=== PATIENT | male | born 1950 | race Caucasian/White ===

== ENCOUNTER 2016-05-09 17:20 | Inpatient (IN) | payer MEDICARE, OTHER ==
--- NOTE | 2016-05-09 17:46 | ER Document Report ---
ED Medical Screen (RME) - General Stated Complaint: SHORTNESS OF BREATH Mode of Arrival: Ambulatory Information source: Patient Notes: 66 y/o M presents to ED via EMS c/o sob over the last 2 days. Worse with exertion. Reports hx of chf. Denies fever or chest pain. I have greeted and performed a rapid initial assessment of this patient. A comprehensive ED assessment and evaluation of the patient, analysis of test results and completion of the medical decision making process will be conducted by additional ED providers. TRAVEL OUTSIDE OF THE [place] IN LAST 30 DAYS: No - Related Data Allergies/Adverse Reactions: cephalexin monohydrate [From [employer]] Allergy (Unknown, Verified 05/09/16 17:40) Hives Past Medical History - Social History Family history: Reviewed & Not Pertinent - Past Medical History Cardiac Medical History: Reports: Hx Congestive Heart Failure, Hx Heart Attack - 1995, Hx Hypercholesterolemia, Hx Peripheral Vascular Disease Denies: Hx Hypertension Pulmonary Medical History: Reports: Hx Sleep Apnea Denies: Hx Asthma Neurological Medical History: Denies: Hx Cerebrovascular Accident, Hx Seizures Endocrine Medical History: Reports: Hx Diabetes Mellitus Type 2 GI Medical History: Reports: Hx Gastroesophageal Reflux Disease. Denies: Hx Hepatitis, Hx Hiatal Hernia, Hx Ulcer Musculoskeltal Medical History: Reports Hx Arthritis Psychiatric Medical History: Reports: Hx Depression Infectious Medical History: Denies: Hx Hepatitis Past Surgical History: Reports: Hx Appendectomy, Hx Cardiac Surgery - Aortic Valve replacement, Hx Orthopedic Surgery - Right BKA, Hx Valve Replacement, Other - Lens Replacement Surgery. Denies: Hx Open Heart Surgery, Hx Pacemaker - Immunizations Hx Diphtheria, Pertussis, Tetanus Vaccination: Yes Physical Exam - General General appearance: Appears well, Alert In distress: None - Respiratory Respiratory status: No respiratory distress - Cardiovascular Pulses: Normal: Radial Normal capillary refill: Yes
[2016-05-09 18:37] LABS: ABSOLUTE BASOPHILS # (AUTO) 0.1 10^3/uL (0.0-0.2); ABSOLUTE EOSINOPHILS # (AUTO) 0.2 10^3/uL (0.0-0.6); ABSOLUTE LYMPHOCYTES (AUTO) 1.3 10^3/uL (0.5-4.7); ABSOLUTE NEUT (AUTO) 11.5 10^3/uL (1.7-8.2); BASOPHILS % (AUTO) 0.5 % (0-2); EOSINOPHILS % (AUTO) 1.4 % (0-6); HEMATOCRIT 31.8 % (37.9-51.0); HEMOGLOBIN 10.1 g/dL (13.5-17.0); HGB HCT DIFFERENCE -1.5; LYMPHOCYTES % (AUTO) 9.3 % (13-45); MEAN CORPUSCULAR HEMOGLOBIN 24.2 pg (27.0-33.4); MEAN CORPUSCULAR HGB CONC 31.7 g/dL (32.0-36.0); MEAN CORPUSCULAR VOLUME 76 fl (80-97); MONOCYTES % (AUTO) 7.1 % (3-13); RED BLOOD COUNT 4.17 10^6/uL (4.35-5.55); RED CELL DISTRIBUTION WIDTH 19.9 % (11.5-14.0); SEGMENTED NEUTROPHILS % (AUTO) 81.7 % (42-78); WHITE BLOOD COUNT 14.1 10^3/uL (4.0-10.5)
[2016-05-09 18:44] LABS: PROTHROMBIN TIME 35.3 SEC (11.4-15.4)
[2016-05-09 18:45] LABS: PARTIAL THROMBOPLASTIN TIME 41.3 SEC (23.5-35.8)
[2016-05-09 18:51] LABS: ALANINE AMINOTRANSFERASE 18 U/L (21-72); ALBUMIN 4.3 g/dL (3.5-5.0); ALKALINE PHOSPHATASE 65 U/L (38-126); ANION GAP 13 (5-19); ASPARTATE AMINO TRANSFERASE 18 U/L (17-59); BILIRUBIN,TOTAL 0.8 mg/dL (0.2-1.3); BLOOD UREA NITROGEN 29 mg/dL (7-20); CALCIUM 9.6 mg/dL (8.4-10.2); CARBON DIOXIDE 25 mmol/L (22-30); CHLORIDE 101 mmol/L (98-107); CREATINE KINASE 54 U/L (55-170); CREATININE RESULT 0.91 mg/dL (0.52-1.25); GLUCOSE 155 mg/dL (75-110); POTASSIUM 4.6 mmol/L (3.6-5.0); SODIUM 139.1 mmol/L (137-145); TOTAL PROTEIN 7.5 g/dL (6.3-8.2)
[2016-05-09 19:02] LABS: CREATINE KINASE MB 1.25 ng/mL (<4.55)
[2016-05-09 19:04] LABS: TROPONIN I < 0.012 ng/mL
[2016-05-09 20:56] LABS: APPEARANCE,URINE CLEAR; BILIRUBIN,URINE NEGATIVE (NEGATIVE); GLUCOSE, URINE NEGATIVE (NEGATIVE); KETONES,URINE NEGATIVE (NEGATIVE); LEUKOCYTE ESTERASE,URINE NEGATIVE (NEGATIVE); NITRITE,URINE NEGATIVE (NEGATIVE); PROTEIN,URINE NEGATIVE (NEGATIVE); URINE SPECIFIC GRAVITY 1.013; UROBILINOGEN,URINE NEGATIVE mg/dL (<2.0)
--- NOTE | 2016-05-09 22:11 | ER Document Report ---
ED General - General Chief Complaint: Shortness Of Breath Stated Complaint: SHORTNESS OF BREATH Mode of Arrival: Ambulatory Notes: Patient is a 66-year-old male that comes emergency department for chief complaint of worsening shortness of breath for the past 2 days, patient states that he was supposed to see his continuity tester down in [place] today but states he became too short of breath and came in to be evaluated instead. He denies any chest pain, cough, fever. He states he has noticed more fluid on his left ankle and over his abdomen, patient has a conjugate a medical history including CHF, peripheral vascular disease with right BKA, type II diabetes, aortic valve replacement, PA and cardiac stents. Patient is on Coumadin. Patient takes 80 mg of Lasix twice daily and states he has been compliant with this. Patient is also on 4 L nasal cannula at night. TRAVEL OUTSIDE OF THE [place] IN LAST 30 DAYS: No - Related Data Allergies/Adverse Reactions: cephalexin monohydrate [From [employer]] Allergy (Unknown, Verified 05/09/16 17:40) Hives Past Medical History - General Information source: Patient - Social History Smoking Status: Never Smoker Chew tobacco use (# tins/day): No Frequency of alcohol use: None Drug Abuse: None Lives with: Family Family History: Reviewed & Not Pertinent Patient has suicidal ideation: No Patient has homicidal ideation: No - Past Medical History Cardiac Medical History: Reports: Hx Congestive Heart Failure, Hx Heart Attack - 1995, Hx Hypercholesterolemia, Hx Peripheral Vascular Disease Denies: Hx Hypertension Pulmonary Medical History: Reports: Hx Sleep Apnea Denies: Hx Asthma Neurological Medical History: Denies: Hx Cerebrovascular Accident, Hx Seizures Endocrine Medical History: Reports: Hx Diabetes Mellitus Type 2 Renal/ Medical History: Denies: Hx Peritoneal Dialysis GI Medical History: Reports: Hx Gastroesophageal Reflux Disease. Denies: Hx Hepatitis, Hx Hiatal Hernia, Hx Ulcer Musculoskeltal Medical History: Reports Hx Arthritis Psychiatric Medical History: Reports: Hx Depression Infectious Medical History: Denies: Hx Hepatitis Past Surgical History: Reports: Hx Appendectomy, Hx Cardiac Surgery - Aortic Valve replacement, Hx Orthopedic Surgery - Right BKA, Hx Valve Replacement, Other - Lens Replacement Surgery. Denies: Hx Open Heart Surgery, Hx Pacemaker - Immunizations Hx Diphtheria, Pertussis, Tetanus Vaccination: Yes Hx Pneumococcal Vaccination: 08/28/12 Review of Systems - Review of Systems Constitutional: No symptoms reported EENT: No symptoms reported Cardiovascular: See HPI Respiratory: See HPI Gastrointestinal: No symptoms reported Genitourinary: No symptoms reported Male Genitourinary: No symptoms reported Musculoskeletal: No symptoms reported Skin: No symptoms reported Hematologic/Lymphatic: No symptoms reported Neurological/Psychological: No symptoms reported Physical Exam - Vital signs Vitals: Temp Resp BP 97.7 F 24 H 114/65 05/09/16 17:46 05/09/16 17:46 05/09/16 17:46 Interpretation: Normal - General General appearance: Appears well, Alert - HEENT Head: Normocephalic, Atraumatic Eyes: Normal Pupils: PERRL - Respiratory Respiratory status: No respiratory distress. No: Labored Chest status: Nontender Breath sounds: Other - A few scattered rales, decreased breath sounds bilaterally, unremarkable examination otherwise Chest palpation: Normal - Cardiovascular Rhythm: Regular. No: Tachycardia Heart sounds: Normal auscultation, S1 appreciated, S2 appreciated Murmur: Yes - 1/6 heard throughout - Abdominal Inspection: Normal Distension: No distension Bowel sounds: Normal Tenderness: Nontender Organomegaly: No organomegaly - Back Back: Normal, Nontender - Extremities General upper extremity: Normal inspection, Nontender, Normal color, Normal ROM , Normal temperature General lower extremity: Other - Right BKA, left ankle with edema noticed at the ankle but also extending up towards the knee, normal pulse, no abnormalities noted otherwise - Neurological Neuro grossly intact: Yes Cognition: Normal Orientation: AAOx4 [place] Coma Scale Eye Opening: Spontaneous [place] Coma Scale Verbal: Oriented [place] Coma Scale Motor: Obeys Commands Sushila Coma Scale Total: 15 Speech: Normal Cranial nerves: Normal Cerebellar coordination: Normal Motor strength normal: LUE, RUE, LLE, RLE Additional motor exam normals: Equal assessment specialist Sensory: Normal - Psychological Associated symptoms: Normal affect, Normal mood - Skin Skin Temperature: Warm Skin Moisture: Dry Skin Color: Normal Course - Re-evaluation Re-evalutation: CBC shows mild leukocytosis, however this is downtrending from prior, also shows microcytic anemia, this is also not new compared to prior. A&P is somewhat elevated, not as elevated as it has been previously, cardiac enzymes negative, EKG shows paced rhythm. Chest x-ray shows small pleural effusions with pulmonary vascular congestion consistent with patient's history and symptoms of likely CHF exacerbation. Patient treated with IV Lasix, patient unfortunately has started taking very large amount of Lasix at home which normally keep him from developing the symptoms. Discussed with Dr. Tate. Discussed with Dr. Esparza, patient will be admitted to the hospital for CHF exacerbation. - Vital Signs Vital signs: Temp Pulse Resp BP Pulse Ox 98.5 F 27 H 111/77 98 05/10/16 01:15 05/10/16 04:01 05/10/16 04:01 05/10/16 04:00 - Laboratory Result Diagrams: 05/09/16 18:07 05/09/16 18:07 Laboratory results interpreted by me: 05/09/16 05/09/16 05/09/16 18:07 18:07 18:07 WBC 14.1 H RBC 4.17 L Hgb 10.1 L Hct 31.8 L MCV 76 L MCH 24.2 L MCHC 31.7 L RDW 19.9 H Seg Neutrophils % 81.7 H Lymphocytes % 9.3 L Absolute Neutrophils 11.5 H PT APTT BUN 29 H Glucose 155 H ALT 18 L Creatine Kinase 54 L NT-Pro-B Natriuret Pep 1620 H TSH Urine Blood 05/09/16 05/09/16 05/10/16 18:07 20:25 00:37 WBC RBC Hgb Hct MCV MCH MCHC RDW Seg Neutrophils % Lymphocytes % Absolute Neutrophils PT 35.3 H APTT 41.3 H BUN Glucose ALT Creatine Kinase NT-Pro-B Natriuret Pep TSH 5.06 H Urine Blood LARGE H Discharge - Discharge Clinical Impression: Shortness of breath, Pulmonary vascular congestion CHF (congestive heart failure) Qualifiers: Congestive heart failure type: unspecified congestive heart failure type Congestive heart failure chronicity: unspecified congestive heart failure chronicity Qualified Code(s): I50.9 - Heart failure, unspecified Disposition: ADMITTED INPATIENT Admitting Provider: Hospitalist Unit Admitted: [facility]
[2016-05-09] MEDS ORDERED: FUROSEMIDE INJ/PF 40 MG/4 ML SDV IV ONE (22:16)
--- NOTE | 2016-05-09 23:23 | ER Document Report ---
Doctor's Note Notes: 05/09/16 23:21 Patient independently seen and examined by myself. Patient reports 2 day history of worsening shortness of breath and what he said past with exacerbations congestive heart failure which is usually responded IV Lasix. He reports chronically uses oxygen 4 L nasal cannula at night. He denies chest pain. He reports no recent weight gain and doesn't think he's had any swelling in his for left leg. Worse than his baseline. Patient denies diaphoresis, fever, chills, nausea, vomiting. My physical exam chest a few crackles in bases bilateral breath sounds equal good aeration excess muscle usage heart regular rate and rhythm abdomen soft nontender nondistended no guarding rebound rigidity Lower extremities warm with 3+ edema from mid thigh down EKG and chest x-ray reviewed along with laboratory work
[2016-05-10] MEDS ORDERED: DEXTROSE 40% GEL 15 GM TUBE PO PRN ×2 (02:42)
[2016-05-10] MEDS ORDERED: DEXTROSE 50%-WATER 25 GM/50 ML DISP.SYRIN IV PRN ×2 (02:42)
[2016-05-10] MEDS ORDERED: GLUCAGON,HUMAN RECOMB 1 MG INJ IM PRN (02:42)
--- NOTE | 2016-05-10 03:16 | PDOC H&P ---
History of Present Illness Admission Date/PCP: 05/09/16 23:11 [facility] Cardiology: Dr. Kaye, Dr. Wolf Patient complains of: Difficulty breathing History of Present Illness: AMANDA CALDERON is a 66 year old morbidly obese male with multiple chronic comorbidities, including obstructive sleep apnea, setting of 14, with 4 L oxygen, severe chronic systolic congestive heart failure, less than 20% ejection fraction on March 2015 echocardiogram at our facility, status post AICD implant, type II diabetes mellitus with peripheral vascular disease complications, status post right below-knee amputation, status post mechanical aortic valve replacement, [place] Samm valve, on chronic Coumadin for same, chronic anemia, and status post coronary arterial stent implant, March 2015, who presents to the emergency room for evaluation of a 2 day history of slowly progressive difficulty breathing with associated shortness of breath, in particular with much of any exertion. on prn 4 L oxygen per nasal cannula, which he has been using more frequently the last 48 hours. Other than his sleep apnea, he denies any underlying chronic lung pathology such as asthma or COPD. Was actually scheduled to see his fire sprinkler installer in [place] on the , but was too short of breath and came to the emergency room. Dry cough. Mild occasional chest "heaviness," when the shortness of breath is at its worst, but no chest pain per se. No current chest symptoms. No abdominal pain, fever chills, nausea vomiting, diarrhea or dysuria. States he is compliant with his medications and has not run out of any recently. Normally takes 80 mg of Lasix twice daily. His only recent medication change is [id number] medications for sinus congestion, including Zyrtec, Chloraseptic spray, and Coricidin HBP. Has been treated with parenteral Lasix in the emergency room, and states he is breathing more comfortably now. Patient has been discussed with emergency room nurse practitioner who evaluated the patient. . Laboratory results are listed in [facility] and are reviewed. X-ray summary results are listed below, with full report(s) reviewed. . EKG reviewed. And compared to tracing from September 02, 2014. Social history/personal habits: . 3 children. On disability due to multiple health problems. No use of alcohol tobacco or illicit drugs. Allergies/adverse reactions are listed in [facility] and are reviewed. Home medications are reviewed by discussion with patient and are to be reconciled by nursing staff in [facility]. Home medications initially autopopulated into [employer] may not accurately reflect patient's true medications, dosages, and/or frequencies. Unfortunately, patient uncertain of medications/dosages/frequencies. Order has been entered for staff to contact family, outpatient physician, and/or pharmacy to more accurately determine medications, dosages, and frequencies and to contact physician when that has been accomplished. REVIEW OF SYSTEMS: Constitutional: No fever or chills. Eyes: Wears glasses. ENT: No swallowing problems or complaints. Partial hearing loss. Pulmonary: See history and present illness. Cardiovascular: See history and present illness. Gastrointestinal: No current complaints, including nausea or vomiting. Skin: Recurrent small skin ulcers on his left posterior calf, with 1 present now. Hematologic: Easy bruising. Neurologic: Minimal sensation in his left foot, chronic finding due to diabetic neuropathy. Musculoskeletal: Joint pain from arthritis. Psychiatric: Mild depression; denies suicidal or homicidal ideation. Endocrine: No current complaints, including polyuria. Genitourinary: No current complaints, including dysuria. PHYSICAL EXAMINATION: 6 feet 4 inches tall. 163.3 kg. BMI 43.8 kg/m. Temperature 98.5. Blood pressure 112/62. Pulse 97 and regular. Respirations are 13 and unlabored. 99 % saturation on 4 L oxygen per nasal cannula. Morbidly obese chronically ill-appearing male who nevertheless appears approximately his stated age. Pleasant awake alert and cooperative. No obvious distress other than perhaps mildly anxious, along with perhaps slightly fatigued. is present at his side; patient approves. Skin is warm and dry. No grossly obvious evidence of rash in areas of skin examined. No subcutaneous nodules palpated. Evidence of chronic venous staining, left lower extremity in the gaitor region. Small amount of clear serous fluid weeping from his left posterior calf, with a small chronic appearing ulcer in the same region, without evidence of secondary infection. Nontender to palpation. ENT: Mildly hard of hearing to normal conversation. Tongue midline on protrusion pink and slightly tacky. Eyes: No scleral icterus. Pupils equal and reactive to light at 4 mm. [place] conjunctivae. Neck is supple and nontender to gentle active range of motion and palpation. Midline trachea. No palpable thyroid nodule mass enlargement or tenderness. Lymphatic: No palpable cervical or clavicular nodes. Neck and lymphatic exams limited by patient body habitus. Psychiatric: Reasonable insight into acute and chronic medical issues. Oriented to time location and why here. Lungs: Auscultation reveals clear and equal breath sounds bilaterally. No use of accessory respiratory muscles. Cardiovascular: Heart regular rate and rhythm, without gallop murmur or rub. No carotid or abdominal aortic bruits. mild left ankle and pedal edema, slightly pitting. Faintly palpable dorsalis pedis pulses. Abdomen: soft, quite obese, nontender with positive bowel sounds. Unable to adequately evaluate abdomen for masses or organomegaly due to body habitus. Extremities: Left foot warm and dry. No calf tenderness to compression. No grossly obvious visual evidence of calf swelling. Gentle active range of motion of left lower extremity fails to reveal any obvious evidence of injury or instability to knee hip or ankle. Status post right below-knee amputation. Neurologic: Moves upper extremities grossly normally. Left patellar reflex absent. Absent Babinski. Light touch decreased at foot, a chronic finding, according to patient, without recent change. Dorsiflexion and plantarflexion of foot 5 over 5. Past Medical History Cardiac Medical History: Reports: Congestive Heart Failure - Ejection fraction less than 20%, March 2015 echo at our facility., Coronary Artery Disease, Myocardial Infarction - 1995, Hyperlipidema, Hypertension, Peripheral Vascular Disease Denies: DVT, Pulmonary Embolism Pulmonary Medical History: Reports: Sleep Apnea Denies: Asthma, Chronic Obstructive Pulmonary Disease (COPD) EENT Medical History: Reports: Eyes - Glasses, Ears - Partial hearing loss Denies: Throat Neurological Medical History: Denies: Hemorrhagic CVA, Ischemic CVA, Seizures Endocrine Medical History: Reports: Diabetes Mellitus Type 2 Denies: Diabetes Mellitus Type 1, Hyperthyroidism, Hypothyroidism Renal/ Medical History: Reports: Other - Occasional urinary tract infection Malignancy Medical History: Reports: Skin Cancer - History of basal cell carcinomas. GI Medical History: Reports: Gastroesophageal Reflux Disease Denies: Cirrhosis, Hepatitis, Hiatal Hernia, Peptic Ulcer Disease Musculoskeltal Medical History: Reports: Arthritis Skin Medical History: Reports: Other - Recurrent small ulcers, left posterior calf. Denies: Eczema, Psoriasis Psychiatric Medical History: Reports: Depression Denies: Alcohol Dependency, General Anxiety Disorder, Substance Abuse, Tobacco Dependency Hematology: Denies: Anemia, Sickle Cell Disease Infectious Medical History: Reports: Clostridium Difficile Denies: Hepatitis B, Hepatitis C, Methicillin-Resistant Staph Aureus Past Surgical History Past Surgical History: Reports: Appendectomy, Orthopedic Surgery - Right BKA, Valve Replacement - Aortic, St. Samm replacement., Other - Cataract surgery, w/ lens implants Denies: Pacemaker Social History Information Source: Patient, Emergency Med Personnel, [facility] Records Lives with: Family Smoking Status: Never Smoker Frequency of Alcohol Use: None Hx Recreational Drug Use: No Drugs: None Hx Prescription Drug Abuse: No - Advance Directive Resuscitation Status: Full Code Surrogate healthcare decision maker:: Family History Family History: Reviewed & Not Pertinent Parental Family History Reviewed: Yes Children Family History Reviewed: Yes Sibling(s) Family History Reviewed.: Yes Medication/Allergy Home Medications: Acetaminophen [Tylenol] 1,300 mg PO Q8HP PRN 05/10/16 Aspirin [Adult Low Dose Aspirin EC] 81 mg PO DAILY 05/10/16 Atorvastatin Calcium [Lipitor 80 mg Tablet] 80 mg PO DAILY 05/10/16 Carvedilol [Coreg 6.25 mg Tablet] 6.25 mg PO BIDBS 05/10/16 Clopidogrel Bisulfate [Plavix 75 mg Tablet] 75 mg PO DAILY 05/10/16 Fluticasone Propionate [Flonase Nasal Quinton 50 Mcg/[place]inton 16 gm] 1 spray NASL DAILY 05/10/16 Insulin Lispro [Humalog Kwikpen U-100] 0 units SQ .PERSLIDINGSCALE 05/10/16 Insulin Lispro [Humalog Kwikpen U-100] 24 units SQ TID 05/10/16 Insulin Regular, Human [Humulin R U-500 Kwikpen] 42 units SQ DAILY 05/10/16 Isosorbide Mononitrate [Imdur 60 mg Tablet.er] 60 mg PO QAM 05/10/16 Lidocaine [Lidoderm 5% (700 mg) Transdermal Patch] 2 patch TOP DAILY 05/10/16 Metformin HCl [Glucophage] 1,000 mg PO BIDBS 05/10/16 Nitroglycerin [Nitromist] 1 spray SL Q5MP PRN 05/10/16 Omeprazole 20 mg PO QPM 05/10/16 Oxybutynin Chloride [Ditropan Xl] 5 mg PO Q12 05/10/16 Paroxetine HCl [Paxil 20 mg Tablet] 20 mg PO DAILY 05/10/16 Polyethylene Glycol 3350 [Miralax Powder 17 gm/Packet] 17 gm PO DAILY 05/10/16 Pregabalin [Lyrica 100 mg Capsule] 100 mg PO TID 05/10/16 Ropinirole HCl 1 mg PO QHS 05/10/16 Silver Sulfadiazine [Silvadene 1% Cream 50 gm] 1 applic TOP Q12 05/10/16 Spironolactone [Aldactone 100 mg Tablet] 100 mg PO DAILY 05/10/16 Tobramycin [Tobrex] 1 drop OU Q4 05/10/16 Warfarin Sodium [Coumadin 5 mg Tablet] 10 mg PO SUMOTUTHFRSA@1000 05/10/16 Warfarin Sodium [Coumadin] 15 mg PO WE@1000 05/10/16 Benzocaine/Menthol [Chloraseptic Sore Throat Lozenge] 1 each BUCCAL Q4HP PRN lozenge 05/13/16 Cetirizine HCl [Zyrtec 10 mg Tablet] 10 mg PO DAILY tablet 05/13/16 Furosemide [Lasix] 80 mg PO TID #15 tablet 05/13/16 Magnesium Oxide [Mag-Ox 400 mg Tablet] 800 mg PO BID tablet 05/13/16 Allergies/Adverse Reactions: cephalexin monohydrate [From Keflex] Allergy (Unknown, Verified 05/09/16 17:40) Hives Physical Exam Vital Signs: Temp Pulse Resp BP Pulse Ox 98.5 F 19 111/69 97 05/10/16 01:15 05/10/16 02:01 05/10/16 02:01 05/10/16 02:01 Results Laboratory Results: 05/10/16 05/10/16 00:37 00:37 Magnesium 1.6 TSH 5.06 H 05/10/16 00:37 Troponin I < 0.012 Impressions: Chest X-Ray 05/09/16 17:40 IMPRESSION: Increased interstitial markings in the bases with small bilateral pleural effusions.. VASCULAR CONGESTION. Assessment & Plan - Diagnosis (1) Acute on chronic systolic (congestive) heart failure Is this a current diagnosis for this admission?: YesPlan: Parenteral Lasix at present time. Suspect daytime hospitalist team will contact patient's fire sprinkler installer in [place] [facility]. Resume home medications as appropriate once these have been determined and reviewed. I have strongly encouraged patient not to get out of bed without notifying staff , to avoid a fall with injury. Knee high SCD for DVT prophylaxis; with patient therapeutic on Coumadin, no need for Lovenox or heparin.] Impression and plans were discussed with patient, and , both of whom concur. Time spent in evaluation and management of patient: 62 minutes. (2) Anemia Qualifiers: Anemia type: unspecified type Qualified Code(s): D64.9 - Anemia, unspecified Is this a current diagnosis for this admission?: YesPlan: Follow-up CBC with differential. No need for transfusion at present time. (3) Diabetes mellitus type 2 in obese Is this a current diagnosis for this admission?: YesPlan: Diabetic cardiac diet. Accu-Cheks with appropriate sliding scale coverage.Resume home medications as appropriate once these have been determined and reviewed. 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 (7) SANDRA (obstructive sleep apnea) Is this a current diagnosis for this admission?: YesPlan: CPAP. (8) Ulcer of left lower leg Qualifiers: Non-pressure ulcer stage: unspecified non-pressure ulcer stage Qualified Code(s): L97.929 - Non-pressure chronic ulcer of unspecified part of left lower leg with unspecified severity Is this a current diagnosis for this admission?: YesPlan: Local wound care orders have been entered in medical record. - Inpatient Certification Based on my medical assessment, after consideration of the patient's comorbidities, presenting symptoms, or acuity I expect that the services needed warrant INPATIENT care.: Yes I certify that my determination is in accordance with my understanding of Medicare's requirements for reasonable and necessary INPATIENT services [42 CFR 412.3e].: Yes Medical Necessity: Significant Comorbidiites Make Outpatient Treatment Too Risky , Need Close Monitoring Due to Risk of Patient Decompensation, Need For Continuous Telemetry Monitoring, Risk of Complication if Not Cared For in Hospital, Risk of Diagnosis Which Will Require Inpatient Eval/Care/Monitoring Post Hospital Care: D/C or Transfer Summary
[2016-05-10 07:01] LABS: ABSOLUTE BASOPHILS # (AUTO) 0.1 10^3/uL (0.0-0.2); ABSOLUTE EOSINOPHILS # (AUTO) 0.3 10^3/uL (0.0-0.6); ABSOLUTE LYMPHOCYTES (AUTO) 1.4 10^3/uL (0.5-4.7); ABSOLUTE MONOCYTES (AUTO) 1.3 10^3/uL (0.1-1.4); ABSOLUTE NEUT (AUTO) 13.4 10^3/uL (1.7-8.2); BASOPHILS % (AUTO) 0.5 % (0-2); EOSINOPHILS % (AUTO) 1.5 % (0-6); HEMATOCRIT 34.8 % (37.9-51.0); HEMOGLOBIN 10.8 g/dL (13.5-17.0); HGB HCT DIFFERENCE -2.4; LYMPHOCYTES % (AUTO) 8.6 % (13-45); MEAN CORPUSCULAR HEMOGLOBIN 23.8 pg (27.0-33.4); MEAN CORPUSCULAR VOLUME 77 fl (80-97); MONOCYTES % (AUTO) 7.7 % (3-13); RED BLOOD COUNT 4.53 10^6/uL (4.35-5.55); RED CELL DISTRIBUTION WIDTH 19.8 % (11.5-14.0); SEGMENTED NEUTROPHILS % (AUTO) 81.7 % (42-78); WHITE BLOOD COUNT 16.4 10^3/uL (4.0-10.5)
[2016-05-10 07:22] LABS: PROTHROMBIN TIME 32.2 SEC (11.4-15.4)
[2016-05-10] MEDS: FUROSEMIDE INJ/PF 100 MG/10 ML SDV IV SCH ×2 (09:15→22:06)
[2016-05-10] MEDS: VENLAFAXINE HCL 75 MG CAP.SR.24H PO SCH (09:16)
[2016-05-10] MEDS: ASPIRIN 81 MG TABLET, ENT COATED PO SCH (09:16)
[2016-05-10] MEDS: OXYBUTYNIN CHLORIDE 5 MG TABLET PO SCH (09:16)
[2016-05-10] MEDS: ISOSORBIDE MONONITRATE 60 MG TAB.ER.24H PO SCH (09:17)
[2016-05-10] MEDS: CETIRIZINE 10 MG TABLET PO SCH (09:17)
[2016-05-10] MEDS: MAGNESIUM OXIDE 400 MG TABLET PO SCH ×2 (09:17→17:57)
[2016-05-10] MEDS: DOCUSATE SODIUM 100 MG CAPSULE PO SCH ×2 (09:18→17:57)
[2016-05-10] MEDS: CARVEDILOL 6.25 MG TABLET PO SCH ×2 (09:18→22:06)
[2016-05-10] MEDS ORDERED: ISOSORBIDE MONONITRATE 30 MG TAB.ER.24H PO SCH (10:00)
--- NOTE | 2016-05-10 16:48 | PDOC PROGRESS REPORT ---
Subjective Progress Note for:: 05/10/16 Subjective:: Reason for visit: Follow-up heart failure Hospital course: Per H&P "AMANDA CALDERON is a 66 year old morbidly obese male with multiple chronic comorbidities, including obstructive sleep apnea, setting of 14, with 4 L oxygen, severe chronic systolic congestive heart failure, less than 20% ejection fraction on March 2015 echocardiogram at our facility, status post AICD implant, type II diabetes mellitus with peripheral vascular disease complications, status post right below-knee amputation, status post mechanical aortic valve replacement, St. Samm valve, on chronic Coumadin for same, chronic anemia, and status post coronary arterial stent implant, March 2015, who presents to the emergency room for evaluation of a 2 day history of slowly progressive difficulty breathing with associated shortness of breath, in particular with much of any exertion. Is on when necessary 4 L oxygen per nasal cannula, which he has been using more frequently the last 48 hours. Other than his sleep apnea, he denies any underlying chronic lung pathology such as asthma or COPD. Was actually scheduled to see his special loan officer in [place] on the , but was too short of breath and came to the emergency room. Dry cough. Mild occasional chest "heaviness," when the shortness of breath is at its worst, but no chest pain per se. No current chest symptoms. No abdominal pain, fever chills, nausea vomiting, diarrhea or dysuria. States he is compliant with his medications and has not run out of any recently. Normally takes 80 mg of Lasix twice daily. His only recent medication change is [id number] medications for sinus congestion, including Zyrtec, Chloraseptic spray, and Coricidin HBP. Has been treated with parenteral Lasix in the emergency room, and states he is breathing more comfortably now." Patient was admitted to the hospital and continued on high-dose parenteral Lasix and does report a good diuresis so far. He also reports displeasure with being at this facility because his primary cardiologists are in [place]. He would prefer that we can coordinate his care with [place] at the very least and the best case scenario would be a transferred to [place] if we could sore range. I explained to him that there are no beds available at [facility] but I would happily contact his special loan officer and attempts to coordinate his care here. I reached out to Dr. Kaye but have yet to hear back from him. In the meantime the patient is stable and it would be a lateral transfer for treatment of his congestive heart failure. Subjective: He denies chest pain, palpitations, nausea, vomiting, diarrhea, fevers or chills. He reports persistent dyspnea with minimal exertion. ROS: per HPI plus a total of 10 systems reviewed, pertinent positives and negatives noted above, remaining systems negative. Physical Exam Vital Signs: Temp Pulse Resp BP Pulse Ox 97.5 F 89 19 94/36 L 100 05/10/16 15:36 05/10/16 15:36 05/10/16 15:36 05/10/16 15:36 05/10/16 15:36 Intake & Output 05/09/16 05/10/16 05/11/16 06:59 06:59 06:59 Intake Total 360 Output Total 2700 Balance -2340 Weight 163 kg PHYSICAL EXAM GENERAL: NAD; well developed, well nourished; morbidly obese; alert and oriented to person, place, time, situation HEENT: normocephalic, atraumatic; EOMI, no conjunctival injection, no scleral icterus; oral mucosa moist, neck supple, no LAD, normal ROM RESPIRATORY: no accessory muscle use, no increased WOB, good air entry bilaterally; no wheezes, bibasilar rales but no rhonchi CARDIO: I don't appreciate any JVD; irregularly irregular; soft decrescendo systolic murmur at the apex; no tachycardia VASCULAR: no carotid bruit; no abdominal bruit; no pallor; 2+ radial, DP pulse ; normal capillary refill GI: soft; massive pannus; normal bowel sounds; no rebound, rigidity, guarding; nontender NEURO: no dysarthria; no nystagmus; tongue protrudes midline; normal finger to nose MSK: 4/5 strength; normal ROM hips; ambulatory without assistance; no tenderness; a right BKA EXTREMITIES: no calf tender; no palpable cords in calf; no clubbing, cyanosis , 2+ pedal edema on the left and at the stump PSYCH: normal affect, normal mood SKIN: warm; moist; no petechiae; no telengectasias; no jaundice; no rash Results Laboratory Results: 05/10/16 06:53 02/24/17 06:53 WBC 16.4 H RBC 4.53 Hgb 10.8 L Hct 34.8 L MCV 77 L MCH 23.8 L MCHC 31.0 L RDW 19.8 H Plt Count 295 Seg Neutrophils % 81.7 H Lymphocytes % 8.6 L Monocytes % 7.7 Eosinophils % 1.5 Basophils % 0.5 Absolute Neutrophils 13.4 H Absolute Lymphocytes 1.4 Absolute Monocytes 1.3 Absolute Eosinophils 0.3 Absolute Basophils 0.1 05/10/16 06:53 Troponin I 0.015 Labs reviewed, troponin trend is flat and within the normal range, leukocytosis slightly up, renal function within normal limits EKG Comments: V paced rhythm Impressions: Chest X-Ray 05/09/16 17:40 IMPRESSION: Increased interstitial markings in the bases with small bilateral pleural effusions.. VASCULAR CONGESTION. Status: Image reviewed by me - Bilateral pulmonary edema, wide mediastinum with engorgement of the pulmonary vasculature by my read Assessment & Plan - Diagnosis (1) Acute on chronic systolic (congestive) heart failure Is this a current diagnosis for this admission?: YesPlan: Continue high dose Lasix therapy in an attempt to diurese approximately 1 L per day. Monitor volume status. Awaiting callback from his primary special loan officer to see if he can offer any insight how to proceed or if he is willing to accept the patient in transfer. (2) Coronary artery disease Qualifiers: Coronary Disease-Associated Artery/Lesion type: unspecified vessel or lesion type Associated angina: angina presence unspecified Is this a current diagnosis for this admission?: YesPlan: He is not having chest pain is EKG is nondiagnostic for acute ischemia and his troponins have been flat within the normal range. (3) Hypomagnesemia Is this a current diagnosis for this admission?: YesPlan: Borderline low at present 1.6 we'll check again in the morning and replace as needed; may worsen with diuresis (4) Anemia Qualifiers: Anemia type: unspecified type Qualified Code(s): D64.9 - Anemia, unspecified Is this a current diagnosis for this admission?: YesPlan: Continue to monitor his H&H; no evidence for acute blood loss. (5) DM w/o complication type II Is this a current diagnosis for this admission?: YesPlan: Cover with sliding scale. (6) History of aortic valve replacement with metallic valve Is this a current diagnosis for this admission?: YesPlan: Continue anticoagulation following his INR on a daily basis. (7) retirement current use of anticoagulant therapy Is this a current diagnosis for this admission?: YesPlan: Continue anticoagulation. (8) Morbid obesity Is this a current diagnosis for this admission?: YesPlan: Certainly adversely affects his respiratory status. (9) SANDRA (obstructive sleep apnea) Is this a current diagnosis for this admission?: YesPlan: Continue home CPAP with supplemental O2 at night per his usual routine - Time Time Spent with patient: 35 or more minutes Medications reviewed and adjusted accordingly: Yes Anticipated discharge: Home Within: within 72 hours - Plan Summary Plan Summary: Dr. Kaye's office number is [phone]
--- NOTE | 2016-05-10 16:55 | EKG REPORT ---
SEVERITY:- ABNORMAL ECG - ATRIAL-SENSED VENTRICULAR-PACED RHYTHM : Confirmed by: Elizabeth Bush MD 10-May-2016 16:54:15
[2016-05-10 18:24] LABS: PROTHROMBIN TIME 32.4 SEC (11.4-15.4)
[2016-05-10] MEDS ORDERED: (PENDING PHARMACY ID) (Warfarin Sodium [Coumadin] 10 MG) PO SCH (22:00)
[2016-05-10] MEDS: ATORVASTATIN CALCIUM 80 MG TABLET PO SCH (22:06)
[2016-05-11 05:37] LABS: ABSOLUTE BASOPHILS # (AUTO) 0.1 10^3/uL (0.0-0.2); ABSOLUTE EOSINOPHILS # (AUTO) 0.3 10^3/uL (0.0-0.6); ABSOLUTE LYMPHOCYTES (AUTO) 1.5 10^3/uL (0.5-4.7); ABSOLUTE MONOCYTES (AUTO) 1.3 10^3/uL (0.1-1.4); ABSOLUTE NEUT (AUTO) 12.1 10^3/uL (1.7-8.2); EOSINOPHILS % (AUTO) 1.9 % (0-6); HEMATOCRIT 32.9 % (37.9-51.0); HEMOGLOBIN 10.3 g/dL (13.5-17.0); LYMPHOCYTES % (AUTO) 9.5 % (13-45); MEAN CORPUSCULAR HEMOGLOBIN 23.8 pg (27.0-33.4); MEAN CORPUSCULAR HGB CONC 31.3 g/dL (32.0-36.0); MEAN CORPUSCULAR VOLUME 76 fl (80-97); MONOCYTES % (AUTO) 8.4 % (3-13); RED BLOOD COUNT 4.32 10^6/uL (4.35-5.55); RED CELL DISTRIBUTION WIDTH 19.8 % (11.5-14.0); SEGMENTED NEUTROPHILS % (AUTO) 79.2 % (42-78); WHITE BLOOD COUNT 15.3 10^3/uL (4.0-10.5)
[2016-05-11 05:56] LABS: ANION GAP 13 (5-19); BLOOD UREA NITROGEN 33 mg/dL (7-20); CALCIUM 9.4 mg/dL (8.4-10.2); CARBON DIOXIDE 28 mmol/L (22-30); CHLORIDE 97 mmol/L (98-107); CREATININE RESULT 0.98 mg/dL (0.52-1.25); GLUCOSE 132 mg/dL (75-110); MAGNESIUM 1.7 mg/dL (1.6-2.3); POTASSIUM 4.4 mmol/L (3.6-5.0); SODIUM 138.1 mmol/L (137-145)
[2016-05-11] MEDS: ISOSORBIDE MONONITRATE 60 MG TAB.ER.24H PO SCH (09:42)
[2016-05-11] MEDS: VENLAFAXINE HCL 75 MG CAP.SR.24H PO SCH (09:42)
[2016-05-11] MEDS: OXYBUTYNIN CHLORIDE 5 MG TABLET PO SCH (09:43)
[2016-05-11] MEDS: MAGNESIUM OXIDE 400 MG TABLET PO SCH ×2 (09:43→18:55)
[2016-05-11] MEDS: CETIRIZINE 10 MG TABLET PO SCH (09:43)
[2016-05-11] MEDS: CARVEDILOL 6.25 MG TABLET PO SCH ×2 (09:43→22:02)
[2016-05-11] MEDS: DOCUSATE SODIUM 100 MG CAPSULE PO SCH ×2 (09:44→18:56)
[2016-05-11] MEDS: FUROSEMIDE INJ/PF 100 MG/10 ML SDV IV SCH ×2 (09:44→22:03)
[2016-05-11] MEDS: ASPIRIN 81 MG TABLET, ENT COATED PO SCH (09:44)
[2016-05-11] MEDS: WARFARIN SODIUM 5 MG TABLET PO SCH ×2 (10:22→22:02)
[2016-05-11] MEDS: NYSTATIN/DEXAMETH/DIPHEN SUSP 120 ML PO SCH ×4 (11:41→22:03)
--- NOTE | 2016-05-11 13:07 | PDOC PROGRESS REPORT ---
Subjective Progress Note for:: 05/11/16 Subjective:: Reason for visit: Follow-up heart failure Hospital course: Per H&P "AMANDA CALDERON is a 66 year old morbidly obese male with multiple chronic comorbidities, including obstructive sleep apnea, setting of 14, with 4 L oxygen, severe chronic systolic congestive heart failure, less than 20% ejection fraction on March 2015 echocardiogram at our facility, status post AICD implant, type II diabetes mellitus with peripheral vascular disease complications, status post right below-knee amputation, status post mechanical aortic valve replacement, [employer]. Samm valve, on chronic Coumadin for same, chronic anemia, and status post coronary arterial stent implant, March 2015, who presents to the emergency room for evaluation of a 2 day history of slowly progressive difficulty breathing with associated shortness of breath, in particular with much of any exertion. Is on when necessary 4 L oxygen per nasal cannula, which he has been using more frequently the last 48 hours. Other than his sleep apnea, he denies any underlying chronic lung pathology such as asthma or COPD. Was actually scheduled to see his community outreach specialist in [place] on the , but was too short of breath and came to the emergency room. Dry cough. Mild occasional chest "heaviness," when the shortness of breath is at its worst, but no chest pain per se. No current chest symptoms. No abdominal pain, fever chills, nausea vomiting, diarrhea or dysuria. States he is compliant with his medications and has not run out of any recently. Normally takes 80 mg of Lasix twice daily. His only recent medication change is [id number] medications for sinus congestion, including Zyrtec, Chloraseptic spray, and Coricidin HBP. Has been treated with parenteral Lasix in the emergency room, and states he is breathing more comfortably now." Patient was admitted to the hospital and continued on high-dose parenteral Lasix and does report a good diuresis so far. He also reports displeasure with being at this facility because his primary cardiologists are in [place]. He would prefer that we can coordinate his care with [place] at the very least and the best case scenario would be a transferred to [place] if we could sore range. I explained to him that there are no beds available at [facility] but I would happily contact his community outreach specialist and attempts to coordinate his care here. I reached out to Dr. Kaye but have yet to hear back from him. In the meantime the patient is stable and it would be a lateral transfer for treatment of his congestive heart failure. Subjective: He's had a greater than 4 L diuresis since admission and states he feels significantly better. His weight is down several kilograms, his edema is significantly reduced and he no longer complains of dyspnea. He denies chest pain, palpitations, nausea, vomiting, diarrhea, fevers or chills. ROS: per HPI plus a total of 10 systems reviewed, pertinent positives and negatives noted above, remaining systems negative. Physical Exam Vital Signs: Temp Pulse Resp BP Pulse Ox 98.4 F 86 18 111/67 99 05/11/16 07:35 05/11/16 07:35 05/11/16 07:35 05/11/16 07:35 05/11/16 07:35 Intake & Output 05/10/16 05/11/16 05/12/16 06:59 06:59 06:59 Intake Total 939 Output Total 5475 Balance -4536 Weight 163 kg 157.9 kg PHYSICAL EXAM GENERAL: NAD; well developed, well nourished; morbidly obese; alert and oriented to person, place, time, situation HEENT: normocephalic, atraumatic; no conjunctival injection, no scleral icterus ; oral mucosa moist, neck supple, RESPIRATORY: no accessory muscle use, no increased WOB, good air entry bilaterally; no wheezes, bibasilar rales but no rhonchi CARDIO: I don't appreciate any JVD; irregularly irregular; soft decrescendo systolic murmur at the apex; no tachycardia VASCULAR: no pallor; 2+ radial, DP pulse; normal capillary refill GI: soft; massive pannus; normal bowel sounds; no rebound, rigidity, guarding; nontender NEURO: no dysarthria; no nystagmus; tongue protrudes midline MSK: 4/5 strength; normal ROM hips; no tenderness; a right BKA EXTREMITIES: no calf tender; no palpable cords in calf; no clubbing, cyanosis , 2+ pedal edema on the left and at the stump, mildly improved PSYCH: normal affect, normal mood SKIN: warm; moist; no petechiae; no telengectasias; no jaundice; no rash Results Laboratory Results: 05/11/16 05:08 05/11/16 05:08 05/11/16 05/11/16 05:08 05:08 WBC 15.3 H RBC 4.32 L Hgb 10.3 L Hct 32.9 L MCV 76 L MCH 23.8 L MCHC 31.3 L RDW 19.8 H Plt Count 262 Seg Neutrophils % 79.2 H Lymphocytes % 9.5 L Monocytes % 8.4 Eosinophils % 1.9 Basophils % 1.0 Absolute Neutrophils 12.1 H Absolute Lymphocytes 1.5 Absolute Monocytes 1.3 Absolute Eosinophils 0.3 Absolute Basophils 0.1 Sodium 138.1 Potassium 4.4 Chloride 97 L Carbon Dioxide 28 Anion Gap 13 BUN 33 H Creatinine 0.98 Est GFR ( Amer) > 60 Est GFR (Non-Af Amer) > 60 Glucose 132 H Calcium 9.4 Magnesium 1.7 05/10/16 05/11/16 06:53 05:08 Troponin I 0.015 NT-Pro-B Natriuret Pep 1850 H Labs reviewed, BNP actually trended up slightly, renal function stable. Assessment & Plan - Diagnosis (1) Acute on chronic systolic (congestive) heart failure Is this a current diagnosis for this admission?: YesPlan: Continue high dose Lasix therapy at least for another day. Monitor volume status. Still awaiting callback from his primary community outreach specialist to see if he can offer any insight how to proceed or if he is willing to accept the patient in transfer. (2) Coronary artery disease Qualifiers: Coronary Disease-Associated Artery/Lesion type: unspecified vessel or lesion type Associated angina: angina presence unspecified Is this a current diagnosis for this admission?: Yes (3) Hypomagnesemia Is this a current diagnosis for this admission?: Yes (4) Anemia Qualifiers: Anemia type: unspecified type Qualified Code(s): D64.9 - Anemia, unspecified Is this a current diagnosis for this admission?: Yes (5) DM w/o complication type II Is this a current diagnosis for this admission?: Yes (6) History of aortic valve replacement with metallic valve Is this a current diagnosis for this admission?: Yes (7) intermediate current use of anticoagulant therapy Is this a current diagnosis for this admission?: Yes (8) Morbid obesity Is this a current diagnosis for this admission?: Yes (9) SANDRA (obstructive sleep apnea) Is this a current diagnosis for this admission?: Yes - Time Time Spent with patient: 25-34 minutes
[2016-05-11] MEDS ORDERED: MINERAL OIL/PETROLATUM,WHITE CREAM 114 GM TP ONE (15:00)
[2016-05-11] MEDS: INSULIN LISPRO 100 UNIT/ML 3 ML VIAL SUBCUT PRN (16:28)
[2016-05-11 17:14] LABS: PROTHROMBIN TIME 25.2 SEC (11.4-15.4)
[2016-05-11] MEDS: ATORVASTATIN CALCIUM 80 MG TABLET PO SCH (22:02)
[2016-05-12 05:25] LABS: ANION GAP 12 (5-19); BLOOD UREA NITROGEN 35 mg/dL (7-20); CALCIUM 9.3 mg/dL (8.4-10.2); CARBON DIOXIDE 29 mmol/L (22-30); CHLORIDE 96 mmol/L (98-107); CREATININE RESULT 1.04 mg/dL (0.52-1.25); GLUCOSE 135 mg/dL (75-110); POTASSIUM 4.4 mmol/L (3.6-5.0); SODIUM 137.1 mmol/L (137-145)
[2016-05-12] MEDS: ISOSORBIDE MONONITRATE 60 MG TAB.ER.24H PO SCH (09:41)
[2016-05-12] MEDS: CARVEDILOL 6.25 MG TABLET PO SCH ×2 (09:41→22:50)
[2016-05-12] MEDS: DOCUSATE SODIUM 100 MG CAPSULE PO SCH ×2 (09:41→17:21)
[2016-05-12] MEDS: ASPIRIN 81 MG TABLET, ENT COATED PO SCH (09:41)
[2016-05-12] MEDS: VENLAFAXINE HCL 75 MG CAP.SR.24H PO SCH (09:42)
[2016-05-12] MEDS: CETIRIZINE 10 MG TABLET PO SCH (09:42)
[2016-05-12] MEDS: MAGNESIUM OXIDE 400 MG TABLET PO SCH ×2 (09:42→17:22)
[2016-05-12] MEDS: OXYBUTYNIN CHLORIDE 5 MG TABLET PO SCH (09:42)
[2016-05-12] MEDS: NYSTATIN/DEXAMETH/DIPHEN SUSP 120 ML PO SCH ×4 (09:43→22:50)
[2016-05-12] MEDS: MINERAL OIL/PETROLATUM,WHITE CREAM 114 GM TP SCH (09:43)
[2016-05-12] MEDS ORDERED: FUROSEMIDE 80 MG TABLET PO ONE (10:00)
--- NOTE | 2016-05-12 11:05 | PDOC PROGRESS REPORT ---
Subjective Progress Note for:: 05/12/16 Subjective:: Reason for visit: Follow-up heart failure Hospital course: Per H&P "AMANDA CALDERON is a 66 year old morbidly obese male with multiple chronic comorbidities, including obstructive sleep apnea, setting of 14, with 4 L oxygen, severe chronic systolic congestive heart failure, less than 20% ejection fraction on March 2015 echocardiogram at our facility, status post AICD implant, type II diabetes mellitus with peripheral vascular disease complications, status post right below-knee amputation, status post mechanical aortic valve replacement, [employer]. Samm valve, on chronic Coumadin for same, chronic anemia, and status post coronary arterial stent implant, March 2015, who presents to the emergency room for evaluation of a 2 day history of slowly progressive difficulty breathing with associated shortness of breath, in particular with much of any exertion. Is on when necessary 4 L oxygen per nasal cannula, which he has been using more frequently the last 48 hours. Other than his sleep apnea, he denies any underlying chronic lung pathology such as asthma or COPD. Was actually scheduled to see his registration clerk in [place] on the , but was too short of breath and came to the emergency room. Dry cough. Mild occasional chest "heaviness," when the shortness of breath is at its worst, but no chest pain per se. No current chest symptoms. No abdominal pain, fever chills, nausea vomiting, diarrhea or dysuria. States he is compliant with his medications and has not run out of any recently. Normally takes 80 mg of Lasix twice daily. His only recent medication change is [id number] medications for sinus congestion, including Zyrtec, Chloraseptic spray, and Coricidin HBP. Has been treated with parenteral Lasix in the emergency room, and states he is breathing more comfortably now." Patient was admitted to the hospital and continued on high-dose parenteral Lasix and does report a good diuresis so far. He also reports displeasure with being at this facility because his primary cardiologists are in [place]. He would prefer that we can coordinate his care with [place] at the very least and the best case scenario would be a transferred to [place] if we could sore range. I explained to him that there are no beds available at [facility] but I would happily contact his registration clerk and attempts to coordinate his care here. I reached out to Dr. Kaye but have yet to hear back from him. In the meantime the patient is stable and it would be a lateral transfer for treatment of his congestive heart failure. Subjective: He's had a greater than 6L diuresis since admission and states he feels significantly better. His weight is down several kilograms, his edema is significantly reduced and he no longer complains of dyspnea. He denies chest pain, palpitations, nausea, vomiting, diarrhea, fevers or chills. He continues to complain of a sore throat however described as swallowing needles but no swollen glands and no nausea or vomiting. ROS: per HPI plus a total of 10 systems reviewed, pertinent positives and negatives noted above, remaining systems negative. Physical Exam Vital Signs: Temp Pulse Resp BP Pulse Ox 98.7 F 85 16 115/62 98 05/12/16 07:48 05/12/16 07:48 05/12/16 07:48 05/12/16 07:48 05/12/16 07:48 Intake & Output 05/11/16 05/12/16 05/13/16 06:59 06:59 06:59 Intake Total 939 1762 Output Total 5473 3873 Balance -3366 -4565 Weight 157.9 kg 157.141 kg PHYSICAL EXAM GENERAL: NAD; well developed, well nourished; morbidly obese; alert and oriented to person, place, time, situation HEENT: normocephalic, atraumatic; no conjunctival injection, no scleral icterus ; oral mucosa moist, neck supple, posterior oropharynx is quite erythematous with a punctate approximately 2-3 mm excoriation in the back oozing a tiny amount of blood RESPIRATORY: no accessory muscle use, no increased WOB, good air entry bilaterally; no wheezes, bibasilar rales but no rhonchi CARDIO: I don't appreciate any JVD; irregularly irregular, predominantly paced on the monitor with PACs; soft decrescendo systolic murmur at the apex; no tachycardia VASCULAR: no pallor; 2+ radial, DP pulse; normal capillary refill GI: soft; massive pannus; normal bowel sounds; no rebound, rigidity, guarding; nontender NEURO: no dysarthria; no nystagmus; tongue protrudes midline MSK: 4/5 strength; normal ROM hips; no tenderness; a right BKA EXTREMITIES: no calf tender; no palpable cords in calf; no clubbing, cyanosis , 2+ pedal edema on the left and at the Rt stump, continues to improve PSYCH: normal affect, normal mood SKIN: warm; moist; no petechiae; no telengectasias; no jaundice; no rash Results Laboratory Results: 05/11/16 05:08 05/12/16 04:25 05/12/16 04:25 Sodium 137.1 Potassium 4.4 Chloride 96 L Carbon Dioxide 29 Anion Gap 12 BUN 35 H Creatinine 1.04 Est GFR ( Amer) > 60 Est GFR (Non-Af Amer) > 60 Glucose 135 H Calcium 9.3 05/10/16 05/11/16 05/12/16 06:53 05:08 04:25 Troponin I 0.015 NT-Pro-B Natriuret Pep 1850 H 1960 H He does have a leukocytosis and has since admission, trended slightly. Ironically his proBNP is also trending up in spite of weight loss and diuresis Assessment & Plan - Diagnosis (1) Pharyngitis Qualifiers: Pharyngitis/tonsillitis etiology: unspecified etiology Qualified Code(s): J02.9 - Acute pharyngitis, unspecified Is this a current diagnosis for this admission?: YesPlan: Probably viral but possibly strep; will perform a rapid strep screen. Hold on antibiotics at this time. Continue topical care with Magic mouthwash and Cepacol lozenges. (2) Acute on chronic systolic (congestive) heart failure Is this a current diagnosis for this admission?: YesPlan: Continues to improve with a more than adequate volume loss each day. We'll change to oral regimen at 80 mg 3 times a day up from his usual home dose of twice a day, and monitor for response. (3) Coronary artery disease Qualifiers: Coronary Disease-Associated Artery/Lesion type: unspecified vessel or lesion type Associated angina: angina presence unspecified Is this a current diagnosis for this admission?: Yes (4) Hypomagnesemia Is this a current diagnosis for this admission?: Yes (5) Anemia Qualifiers: Anemia type: unspecified type Qualified Code(s): D64.9 - Anemia, unspecified Is this a current diagnosis for this admission?: Yes (6) DM w/o complication type II Is this a current diagnosis for this admission?: Yes (7) History of aortic valve replacement with metallic valve Is this a current diagnosis for this admission?: Yes (8) manager intermediate current use of anticoagulant therapy Is this a current diagnosis for this admission?: Yes (9) Morbid obesity Is this a current diagnosis for this admission?: Yes (10) SANDRA (obstructive sleep apnea) Is this a current diagnosis for this admission?: Yes - Time Time Spent with patient: 25-34 minutes Anticipated discharge: Home Within: within 24 hours
[2016-05-12] MEDS: FUROSEMIDE 80 MG TABLET PO SCH ×2 (14:54→22:48)
[2016-05-12] MEDS: BENZOCAINE/MENTHOL SORE THROAT LOZENGE BUCCAL PRN ×2 (16:25→20:03)
[2016-05-12 19:03] LABS: PROTHROMBIN TIME 25.7 SEC (11.4-15.4)
[2016-05-12] MEDS: WARFARIN SODIUM 5 MG TABLET PO SCH (22:49)
[2016-05-12] MEDS: ATORVASTATIN CALCIUM 80 MG TABLET PO SCH (22:50)
[2016-05-13] MEDS: BENZOCAINE/MENTHOL SORE THROAT LOZENGE BUCCAL PRN (03:30)
[2016-05-13 05:37] LABS: ANION GAP 13 (5-19); BLOOD UREA NITROGEN 38 mg/dL (7-20); CALCIUM 9.2 mg/dL (8.4-10.2); CARBON DIOXIDE 27 mmol/L (22-30); CHLORIDE 96 mmol/L (98-107); CREATININE RESULT 0.91 mg/dL (0.52-1.25); GLUCOSE 139 mg/dL (75-110); POTASSIUM 4.3 mmol/L (3.6-5.0); SODIUM 136.1 mmol/L (137-145)
[2016-05-13] MEDS: FUROSEMIDE 80 MG TABLET PO SCH (06:25)
[2016-05-13] MEDS: MINERAL OIL/PETROLATUM,WHITE CREAM 114 GM TP SCH (10:19)
[2016-05-13] MEDS: NYSTATIN/DEXAMETH/DIPHEN SUSP 120 ML PO SCH ×4 (10:19→23:02)
[2016-05-13] MEDS: CETIRIZINE 10 MG TABLET PO SCH (10:33)
[2016-05-13] MEDS: DOCUSATE SODIUM 100 MG CAPSULE PO SCH ×2 (10:33→18:51)
[2016-05-13] MEDS: VENLAFAXINE HCL 75 MG CAP.SR.24H PO SCH (10:33)
[2016-05-13] MEDS: OXYBUTYNIN CHLORIDE 5 MG TABLET PO SCH (10:33)
[2016-05-13] MEDS: ASPIRIN 81 MG TABLET, ENT COATED PO SCH (10:34)
[2016-05-13] MEDS: CARVEDILOL 6.25 MG TABLET PO SCH ×2 (10:34→23:01)
[2016-05-13] MEDS: MAGNESIUM OXIDE 400 MG TABLET PO SCH ×2 (10:34→18:51)
[2016-05-13] MEDS: ISOSORBIDE MONONITRATE 60 MG TAB.ER.24H PO SCH (10:35)
[2016-05-13] MEDS: ACETAMINOPHEN 325 MG TABLET PO PRN (10:40)
--- NOTE | 2016-05-13 11:26 | PDOC PROGRESS REPORT ---
Subjective Progress Note for:: 05/13/16 Subjective:: Reason for visit: Follow-up heart failure Hospital course: Per H&P "AMANDA CALDERON is a 66 year old morbidly obese male with multiple chronic comorbidities, including obstructive sleep apnea, setting of 14, with 4 L oxygen, severe chronic systolic congestive heart failure, less than 20% ejection fraction on March 2015 echocardiogram at our facility, status post AICD implant, type II diabetes mellitus with peripheral vascular disease complications, status post right below-knee amputation, status post mechanical aortic valve replacement, [place] valve, on chronic Coumadin for same, chronic anemia, and status post coronary arterial stent implant, March 2015, who presents to the emergency room for evaluation of a 2 day history of slowly progressive difficulty breathing with associated shortness of breath, in particular with much of any exertion. Is on when necessary 4 L oxygen per nasal cannula, which he has been using more frequently the last 48 hours. Other than his sleep apnea, he denies any underlying chronic lung pathology such as asthma or COPD. Was actually scheduled to see his ocean lifeguard in [place] on the , but was too short of breath and came to the emergency room. Dry cough. Mild occasional chest "heaviness," when the shortness of breath is at its worst, but no chest pain per se. No current chest symptoms. No abdominal pain, fever chills, nausea vomiting, diarrhea or dysuria. States he is compliant with his medications and has not run out of any recently. Normally takes 80 mg of Lasix twice daily. His only recent medication change is [id number] medications for sinus congestion, including Zyrtec, Chloraseptic spray, and Coricidin HBP. Has been treated with parenteral Lasix in the emergency room, and states he is breathing more comfortably now." Patient was admitted to the hospital and continued on high-dose parenteral Lasix and does report a good diuresis so far. He also reports displeasure with being at this facility because his primary cardiologists are in [place]. He would prefer that we can coordinate his care with [place] at the very least and the best case scenario would be a transferred to [place] if we could sore range. I explained to him that there are no beds available at [facility] but I would happily contact his ocean lifeguard and attempts to coordinate his care here. I reached out to Dr. Kaye but never heard back from him. In the meantime the patient is stable and it would be a lateral transfer for treatment of his congestive heart failure anyway. Subjective: He's had a greater than 6kg diuresis since admission and states he feels significantly better. His edema is significantly reduced and he no longer complains of dyspnea at rest. He tells me he is okay with going home today however his adamantly refuses to take him home stating that they're still too much fluid on his body, that he get short of breath with minimal exertion (which he freely admits he never exerts himself at home moving only from the chair to the couch to the bed to the chair again) and that he was just at [facility] and required 10 days of IV Lasix before they were able to get him home in completely back to her "normal". He denies chest pain, palpitations, nausea, vomiting, diarrhea, fevers or chills. He continues to complain of a sore throat however described as swallowing needles but no swollen glands and no nausea or vomiting. ROS: per HPI plus a total of 10 systems reviewed, pertinent positives and negatives noted above, remaining systems negative. Physical Exam Vital Signs: Temp Pulse Resp BP Pulse Ox 97.8 F 77 18 112/59 L 96 05/13/16 08:36 05/13/16 10:36 05/13/16 08:36 05/13/16 10:36 05/13/16 08:36 Intake & Output 05/12/16 05/13/16 05/14/16 06:59 06:59 06:59 Intake Total 1762 1595 Output Total 5724 2875 Balance -1863 -1280 Weight 157.141 kg 157.5 kg PHYSICAL EXAM GENERAL: NAD, wearing his nocturnal CPAP; well developed, well nourished; morbidly obese; alert and oriented to person, place, time, situation HEENT: normocephalic, atraumatic; no conjunctival injection, no scleral icterus ; oral mucosa moist, neck supple, posterior oropharynx remains erythematous with a punctate approximately 2-3 mm bullous lesion in the back just under the uvula oozing a tiny amount of blood RESPIRATORY: no accessory muscle use, no increased WOB while at rest, good air entry bilaterally; no wheezes, persisted bibasilar rales but no rhonchi CARDIO: I don't appreciate any JVD; remains irregularly irregular, predominantly paced on the monitor with occasional PACs; soft decrescendo systolic murmur at the apex; no tachycardia VASCULAR: no pallor; 2+ radial, DP pulse; normal capillary refill GI: soft; massive pannus; normal bowel sounds; no rebound, rigidity, guarding; nontender NEURO: no dysarthria; no nystagmus; tongue protrudes midline MSK: 4/5 strength; normal ROM hips; no tenderness; a right BKA EXTREMITIES: no calf tender; no palpable cords in calf; no clubbing, cyanosis , persistent 2+ pedal edema on the left and at the Rt stump, continues to improve PSYCH: normal affect, normal mood SKIN: warm; moist; no petechiae; no telengectasias; no jaundice; no rash Results Laboratory Results: 05/11/16 05:08 05/13/16 04:37 05/13/16 04:37 Sodium 136.1 L Potassium 4.3 Chloride 96 L Carbon Dioxide 27 Anion Gap 13 BUN 38 H Creatinine 0.91 Est GFR ( Amer) > 60 Est GFR (Non-Af Amer) > 60 Glucose 139 H Calcium 9.2 05/10/16 05/11/16 05/12/16 06:53 05:08 04:25 Troponin I 0.015 NT-Pro-B Natriuret Pep 1850 H 1960 H Assessment & Plan - Diagnosis (1) Pharyngitis Qualifiers: Pharyngitis/tonsillitis etiology: unspecified etiology Qualified Code(s): J02.9 - Acute pharyngitis, unspecified Is this a current diagnosis for this admission?: YesPlan: Probably viral, rapid strep screen negative and no exudate suggestive of thrush. No indication for antibiotics at this time. Continue topical care with Magic mouthwash and Cepacol lozenges. (2) Acute on chronic systolic (congestive) heart failure Is this a current diagnosis for this admission?: YesPlan: Change back to IV Lasix and continue to monitor renal function and urine output and daily weights and I's and O's. (3) Coronary artery disease Qualifiers: Coronary Disease-Associated Artery/Lesion type: unspecified vessel or lesion type Associated angina: angina presence unspecified Is this a current diagnosis for this admission?: YesPlan: He is not having chest pain is EKG is nondiagnostic for acute ischemia and his troponins have been flat within the normal range. (4) Hypomagnesemia Is this a current diagnosis for this admission?: YesPlan: Borderline low at present 1.6 we'll check again in the morning and replace as needed; may worsen with diuresis. Continue oral replacement. (5) Anemia Qualifiers: Anemia type: unspecified type Qualified Code(s): D64.9 - Anemia, unspecified Is this a current diagnosis for this admission?: YesPlan: Stable. Continue to monitor his H&H; no evidence for acute blood loss. 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 Monitor INR in the morning and adjust dose accordingly. (9) Morbid obesity Is this a current diagnosis for this admission?: YesPlan: Certainly adversely affects his respiratory and status. It's unclear to me whether we will be able to return him to his previous level of functioning. Consult PT. (10) SANDRA (obstructive sleep apnea) Is this a current diagnosis for this admission?: YesPlan: Continue home CPAP with supplemental O2 at night per his usual routine - Time Time Spent with patient: 35 or more minutes Medications reviewed and adjusted accordingly: Yes - Plan Summary Plan Summary: Discussed with by telephone for approximately 15 minutes.
[2016-05-13] MEDS: FUROSEMIDE INJ/PF 100 MG/10 ML SDV IV SCH ×2 (15:25→23:02)
[2016-05-13] MEDS: INSULIN LISPRO 100 UNIT/ML 3 ML VIAL SUBCUT PRN (17:05)
[2016-05-13] MEDS: WARFARIN SODIUM 5 MG TABLET PO SCH (23:01)
[2016-05-13] MEDS: ATORVASTATIN CALCIUM 80 MG TABLET PO SCH (23:01)
[2016-05-14] MEDS: BENZOCAINE/MENTHOL SORE THROAT LOZENGE BUCCAL PRN ×3 (04:01→22:10)
[2016-05-14 05:13] LABS: PROTHROMBIN TIME 23.4 SEC (11.4-15.4)
[2016-05-14 05:21] LABS: ANION GAP 14 (5-19); BLOOD UREA NITROGEN 36 mg/dL (7-20); CALCIUM 9.1 mg/dL (8.4-10.2); CARBON DIOXIDE 28 mmol/L (22-30); CHLORIDE 94 mmol/L (98-107); CREATININE RESULT 0.96 mg/dL (0.52-1.25); GLUCOSE 148 mg/dL (75-110); POTASSIUM 4.1 mmol/L (3.6-5.0); SODIUM 135.8 mmol/L (137-145)
[2016-05-14] MEDS: FUROSEMIDE INJ/PF 100 MG/10 ML SDV IV SCH ×3 (06:20→21:57)
[2016-05-14] MEDS: INSULIN LISPRO 100 UNIT/ML 3 ML VIAL SUBCUT PRN ×4 (07:35→22:10)
[2016-05-14] MEDS: MAGNESIUM OXIDE 400 MG TABLET PO SCH ×2 (10:42→18:06)
[2016-05-14] MEDS: DOCUSATE SODIUM 100 MG CAPSULE PO SCH ×2 (10:43→18:06)
[2016-05-14] MEDS: ISOSORBIDE MONONITRATE 60 MG TAB.ER.24H PO SCH (10:43)
[2016-05-14] MEDS: VENLAFAXINE HCL 75 MG CAP.SR.24H PO SCH (10:43)
[2016-05-14] MEDS: OXYBUTYNIN CHLORIDE 5 MG TABLET PO SCH (10:43)
[2016-05-14] MEDS: NYSTATIN/DEXAMETH/DIPHEN SUSP 120 ML PO SCH ×4 (10:44→21:59)
[2016-05-14] MEDS: CETIRIZINE 10 MG TABLET PO SCH (10:44)
[2016-05-14] MEDS: ASPIRIN 81 MG TABLET, ENT COATED PO SCH (10:44)
[2016-05-14] MEDS: CARVEDILOL 6.25 MG TABLET PO SCH ×2 (10:44→21:58)
[2016-05-14] MEDS: MINERAL OIL/PETROLATUM,WHITE CREAM 114 GM TP SCH (10:44)
[2016-05-14] MEDS: ACETAMINOPHEN 325 MG TABLET PO PRN (10:52)
--- NOTE | 2016-05-14 10:56 | PDOC PROGRESS REPORT ---
Subjective Progress Note for:: 05/14/16 Subjective:: Patient is doing very well ;he has no chest pain minimal shortness of breath Complaining of his right nare being clogged and pressure over the right side of his face He has no purulent drainage On the monitor is in a paced rhythm His INR is subtherapeutic below 2 Physical Exam Vital Signs: Temp Pulse Resp BP Pulse Ox 97.8 F 78 18 101/45 L 98 05/14/16 07:50 05/14/16 07:50 05/14/16 07:50 05/14/16 07:50 05/14/16 07:50 Intake & Output 05/13/16 05/14/16 05/15/16 00:59 00:59 00:59 Intake Total 2517 1598 615 Output Total 6226 3425 950 Balance -358 -2900 -488 Weight 157.141 kg 157.5 kg 155.9 kg General appearance: PRESENT: no acute distress Head exam: PRESENT: atraumatic, normocephalic Eye exam: PRESENT: conjunctiva pink, EOMI, PERRLA. ABSENT: scleral icterus Neck exam: ABSENT: carotid bruit, JVD, lymphadenopathy, thyromegaly Respiratory exam: PRESENT: clear to auscultation daniela, decreased breath sounds. ABSENT: rales, rhonchi, wheezes Cardiovascular exam: PRESENT: RRR. ABSENT: diastolic murmur, rubs, systolic murmur GI/Abdominal exam: PRESENT: normal bowel sounds, soft. ABSENT: distended, guarding, mass, organolmegaly, rebound, tenderness Results Laboratory Results: 05/11/16 05:08 05/14/16 04:50 05/14/16 04:50 Sodium 135.8 L Potassium 4.1 Chloride 94 L Carbon Dioxide 28 Anion Gap 14 BUN 36 H Creatinine 0.96 Est GFR ( Amer) > 60 Est GFR (Non-Af Amer) > 60 Glucose 148 H Calcium 9.1 Magnesium 2.0 05/12/16 11:21 Throat Throat Culture - Final NORMAL VY 05/10/16 05/11/16 05/12/16 06:53 05:08 04:25 Troponin I 0.015 NT-Pro-B Natriuret Pep 1850 H 1960 H 05/14/16 04:50 Troponin I NT-Pro-B Natriuret Pep 3030 H Impressions: Chest X-Ray 05/14/16 07:00 IMPRESSION: Cardiomegaly. CABG. Pacemaker. 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 Is this a current diagnosis for this admission?: Yes (5) Morbid obesity with BMI of 45.0-49.9, adult Is this a current diagnosis for this admission?: Yes - Time Time Spent with patient: Overall patient's condition is extremely stable Not adequately anticoagulated and we will initiate a heparin drip Heparin drip to be discontinued when INR is between 2.5 and 3.5 We will increase Coumadin to 12.5 mg daily Continue IV Lasix CT of the sinuses will be ordered We will add Flonase as patient cannot use is C Pap adequately We will treat with antibiotics if patient has evidence of acute sinusitis We luna consider for patient to be discharged home if INR is therapeutic in a.m. Time Spent with patient: 25-34 minutes
[2016-05-14 11:30] LABS: ABSOLUTE BASOPHILS # (AUTO) 0.1 10^3/uL (0.0-0.2); ABSOLUTE EOSINOPHILS # (AUTO) 0.1 10^3/uL (0.0-0.6); ABSOLUTE LYMPHOCYTES (AUTO) 0.7 10^3/uL (0.5-4.7); ABSOLUTE NEUT (AUTO) 11.2 10^3/uL (1.7-8.2); BASOPHILS % (AUTO) 0.9 % (0-2); EOSINOPHILS % (AUTO) 0.7 % (0-6); HEMATOCRIT 33.1 % (37.9-51.0); HEMOGLOBIN 10.4 g/dL (13.5-17.0); HGB HCT DIFFERENCE -1.9; LYMPHOCYTES % (AUTO) 5.5 % (13-45); MEAN CORPUSCULAR HEMOGLOBIN 23.9 pg (27.0-33.4); MEAN CORPUSCULAR HGB CONC 31.5 g/dL (32.0-36.0); MEAN CORPUSCULAR VOLUME 76 fl (80-97); MONOCYTES % (AUTO) 7.6 % (3-13); RED BLOOD COUNT 4.37 10^6/uL (4.35-5.55); RED CELL DISTRIBUTION WIDTH 19.6 % (11.5-14.0); SEGMENTED NEUTROPHILS % (AUTO) 85.3 % (42-78); WHITE BLOOD COUNT 13.1 10^3/uL (4.0-10.5)
[2016-05-14 11:38] LABS: PARTIAL THROMBOPLASTIN TIME 36.2 SEC (23.5-35.8)
[2016-05-14 11:42] LABS: PROTHROMBIN TIME 23.4 SEC (11.4-15.4)
[2016-05-14] MEDS: HEPARIN SODIUM,PORCINE/D5W 250 ML IV PRN (13:47)
[2016-05-14] MEDS ORDERED: FLUTICASONE NASAL SPRAY 50 MCG/SPRY 120 SPRAY/16 GM NASL ONE (14:00)
[2016-05-14] MEDS ORDERED: HEPARIN SODIUM,PORCINE/D5W 25,000 UNIT/250 ML RTUINJ IV PRN (14:17)
[2016-05-14] MEDS ORDERED: HEPARIN SOD (PORCINE) 1,000 UNIT/ML 10 ML VIAL IV PRN (14:17)
[2016-05-14 14:35] LABS: APPEARANCE,URINE CLEAR; BILIRUBIN,URINE NEGATIVE (NEGATIVE); GLUCOSE, URINE NEGATIVE (NEGATIVE); KETONES,URINE NEGATIVE (NEGATIVE); LEUKOCYTE ESTERASE,URINE NEGATIVE (NEGATIVE); NITRITE,URINE NEGATIVE (NEGATIVE); PROTEIN,URINE NEGATIVE (NEGATIVE); UROBILINOGEN,URINE NEGATIVE mg/dL (<2.0)
[2016-05-14] MEDS: ATORVASTATIN CALCIUM 80 MG TABLET PO SCH (21:58)
[2016-05-14] MEDS: WARFARIN SODIUM 5 MG TABLET PO SCH (21:58)
[2016-05-14] MEDS: WARFARIN SODIUM 2.5 MG TABLET PO SCH (21:58)
[2016-05-14] MEDS: FLUTICASONE NASAL SPRAY 50 MCG/SPRY 120 SPRAY/16 GM NASL SCH (21:59)
[2016-05-15 02:17] LABS: HEMATOCRIT 33.7 % (37.9-51.0); HEMOGLOBIN 10.8 g/dL (13.5-17.0); HGB HCT DIFFERENCE -1.3; MEAN CORPUSCULAR HEMOGLOBIN 24.2 pg (27.0-33.4); MEAN CORPUSCULAR HGB CONC 32.1 g/dL (32.0-36.0); MEAN CORPUSCULAR VOLUME 75 fl (80-97); RED BLOOD COUNT 4.48 10^6/uL (4.35-5.55); RED CELL DISTRIBUTION WIDTH 19.8 % (11.5-14.0); WHITE BLOOD COUNT 9.8 10^3/uL (4.0-10.5)
[2016-05-15 03:00] LABS: ANION GAP 13 (5-19); BLOOD UREA NITROGEN 34 mg/dL (7-20); CALCIUM 9.2 mg/dL (8.4-10.2); CARBON DIOXIDE 29 mmol/L (22-30); CHLORIDE 96 mmol/L (98-107); CREATININE RESULT 1.04 mg/dL (0.52-1.25); GLUCOSE 143 mg/dL (75-110); POTASSIUM 4.2 mmol/L (3.6-5.0)
[2016-05-15] MEDS: FUROSEMIDE INJ/PF 100 MG/10 ML SDV IV SCH ×2 (05:43→13:13)
[2016-05-15] MEDS: ASPIRIN 81 MG TABLET, ENT COATED PO SCH (08:57)
[2016-05-15] MEDS: VENLAFAXINE HCL 75 MG CAP.SR.24H PO SCH (08:58)
[2016-05-15] MEDS: CARVEDILOL 6.25 MG TABLET PO SCH ×2 (08:58→22:08)
[2016-05-15] MEDS: CETIRIZINE 10 MG TABLET PO SCH (08:58)
[2016-05-15] MEDS: OXYBUTYNIN CHLORIDE 5 MG TABLET PO SCH (08:58)
[2016-05-15] MEDS: DOCUSATE SODIUM 100 MG CAPSULE PO SCH ×2 (08:58→17:33)
[2016-05-15] MEDS: ISOSORBIDE MONONITRATE 60 MG TAB.ER.24H PO SCH (08:58)
[2016-05-15] MEDS: MAGNESIUM OXIDE 400 MG TABLET PO SCH ×2 (08:59→17:33)
[2016-05-15] MEDS: NYSTATIN/DEXAMETH/DIPHEN SUSP 120 ML PO SCH ×4 (08:59→22:11)
[2016-05-15] MEDS: INSULIN LISPRO 100 UNIT/ML 3 ML VIAL SUBCUT PRN ×3 (08:59→17:33)
[2016-05-15] MEDS: MINERAL OIL/PETROLATUM,WHITE CREAM 114 GM TP SCH (09:00)
[2016-05-15] MEDS: FLUTICASONE NASAL SPRAY 50 MCG/SPRY 120 SPRAY/16 GM NASL SCH ×2 (09:00→22:11)
[2016-05-15 12:04] LABS: PROTHROMBIN TIME 26.7 SEC (11.4-15.4)
[2016-05-15] MEDS: HEPARIN SODIUM,PORCINE/D5W 250 ML IV PRN (13:20)
[2016-05-15] MEDS ORDERED: CLINDAMYCIN HCL 150 MG CAPSULE PO ONE (13:30)
--- NOTE | 2016-05-15 15:04 | PDOC PROGRESS REPORT ---
Subjective Progress Note for:: 05/15/16 Subjective:: Patient is still complaining of pain right maxillary area and he has a low- grade fever A CT of the facial bones did not show any maxillary sinusitis but this chew several abscesses. He has no chest pain ,minimal shortness of breath; his blood pressure is running on the low side at 90 to 100 systolic Physical Exam Vital Signs: Temp Pulse Resp BP Pulse Ox 100.0 F 88 18 90/56 L 91 L 05/15/16 11:42 05/15/16 14:00 05/15/16 11:42 05/15/16 11:42 05/15/16 11:42 Intake & Output 05/14/16 05/15/16 05/16/16 00:59 00:59 00:59 Intake Total 1598 2514 866 Output Total 3425 3925 900 Balance -1827 -1411 -34 Weight 157.5 kg 155.9 kg 153.9 kg General appearance: PRESENT: no acute distress Head exam: PRESENT: atraumatic, normocephalic, other - Tenderness of the right maxillary sinus and slight swelling Eye exam: PRESENT: conjunctiva pink, EOMI, PERRLA. ABSENT: scleral icterus Mouth exam: PRESENT: moist, tongue midline Neck exam: ABSENT: carotid bruit, JVD, lymphadenopathy, thyromegaly Respiratory exam: PRESENT: clear to auscultation daniela, decreased breath sounds. ABSENT: rales, rhonchi, wheezes Cardiovascular exam: PRESENT: RRR. ABSENT: diastolic murmur, rubs, systolic murmur GI/Abdominal exam: PRESENT: normal bowel sounds, soft. ABSENT: distended, guarding, mass, organolmegaly, rebound, tenderness Neurological exam: PRESENT: alert, awake, oriented to person, oriented to place , oriented to time, oriented to situation, CN II-XII grossly intact. ABSENT: motor sensory deficit Results Laboratory Results: 05/15/16 01:58 05/15/16 01:58 05/15/16 05/15/16 01:58 01:58 WBC 9.8 RBC 4.48 Hgb 10.8 L Hct 33.7 L MCV 75 L MCH 24.2 L MCHC 32.1 RDW 19.8 H Plt Count 242 Sodium 138.0 Potassium 4.2 Chloride 96 L Carbon Dioxide 29 Anion Gap 13 BUN 34 H Creatinine 1.04 Est GFR ( Amer) > 60 Est GFR (Non-Af Amer) > 60 Glucose 143 H Calcium 9.2 05/10/16 05/11/16 05/12/16 06:53 05:08 04:25 Troponin I 0.015 NT-Pro-B Natriuret Pep 1850 H 1960 H 05/14/16 04:50 Troponin I NT-Pro-B Natriuret Pep 3030 H Impressions: Chest X-Ray 05/14/16 07:00 IMPRESSION: Cardiomegaly. CABG. Pacemaker. No acute infiltrates Facial Bones CT 05/14/16 10:46 IMPRESSION: No CT evidence of acute sinusitis. Bilateral maxilla periapical tooth root abscesses along the upper incisors related to advanced dental caries. Assessment & Plan - Diagnosis (1) Acute on chronic systolic (congestive) heart failure Is this a current diagnosis for this admission?: YesPlan: EF is around 20% on the last echocardiogram We reevaluated patient's medications We will decrease Lasix pressures low; and added lisinopril truss missing the list of medications Continue Coreg and continue Isordil. We will , (2) Pharyngitis Qualifiers: Pharyngitis/tonsillitis etiology: unspecified etiology Qualified Code(s): J02.9 - Acute pharyngitis, unspecified Is this a current diagnosis for this admission?: YesPlan: Pharyngitis likely to be radiating pain from dental abscesses Initiated clindamycin; we will give patient clindamycin IV (3) History of aortic valve replacement with metallic valve Is this a current diagnosis for this admission?: YesPlan: INR is now 2.25 We will continue heparin drip; follow-up INR in a.m. 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 if clinically stable Time Spent with patient: 25-34 minutes
[2016-05-15] MEDS ORDERED: CLINDAMYCIN 600 MG/D5W RTU 600 MG/50 ML RTUPB IV ONE ×2 (15:30→22:00)
[2016-05-15] MEDS ORDERED: LISINOPRIL 5 MG TABLET PO ONE (16:00)
[2016-05-15] MEDS ORDERED: CLINDAMYCIN HCL 150 MG CAPSULE PO SCH (18:00)
[2016-05-15] MEDS ORDERED: FUROSEMIDE INJ/PF 100 MG/10 ML SDV IV SCH (22:00)
[2016-05-15] MEDS ORDERED: FUROSEMIDE INJ/PF 40 MG/4 ML SDV IV SCH (22:00)
[2016-05-15] MEDS: CLINDAMYCIN 600 MG/D5W RTU 600 MG/50 ML RTUPB IV SCH (22:06)
[2016-05-15] MEDS: ATORVASTATIN CALCIUM 80 MG TABLET PO SCH (22:08)
[2016-05-15] MEDS: WARFARIN SODIUM 5 MG TABLET PO SCH (22:09)
[2016-05-15] MEDS: WARFARIN SODIUM 2.5 MG TABLET PO SCH (22:10)
[2016-05-16] MEDS: ACETAMINOPHEN 325 MG TABLET PO PRN (00:06)
[2016-05-16] MEDS ORDERED: NORMAL SALINE 500 ML IV ONE ×2 (04:45→13:00)
[2016-05-16] MEDS: CLINDAMYCIN 600 MG/D5W RTU 600 MG/50 ML RTUPB IV SCH ×3 (05:19→21:47)
[2016-05-16 06:11] LABS: PROTHROMBIN TIME 36.3 SEC (11.4-15.4)
[2016-05-16 06:14] LABS: PARTIAL THROMBOPLASTIN TIME 122.1 SEC (23.5-35.8)
[2016-05-16 06:17] LABS: ANION GAP 12 (5-19); BLOOD UREA NITROGEN 41 mg/dL (7-20); CALCIUM 8.4 mg/dL (8.4-10.2); CARBON DIOXIDE 28 mmol/L (22-30); CHLORIDE 92 mmol/L (98-107); CREATININE RESULT 1.37 mg/dL (0.52-1.25); GLUCOSE 132 mg/dL (75-110); POTASSIUM 3.6 mmol/L (3.6-5.0); SODIUM 131.7 mmol/L (137-145)
[2016-05-16] MEDS ORDERED: NORMAL SALINE 500 ML IV PRN (09:42)
[2016-05-16] MEDS ORDERED: CARVEDILOL 6.25 MG TABLET PO SCH (09:45)
[2016-05-16] MEDS ORDERED: ISOSORBIDE MONONITRATE 60 MG TAB.ER.24H PO SCH (09:45)
[2016-05-16] MEDS ORDERED: WARFARIN SODIUM 2.5 MG TABLET PO SCH (09:45)
--- NOTE | 2016-05-16 09:54 | PDOC PROGRESS REPORT ---
Subjective Progress Note for:: 05/16/16 Subjective:: Patient feels very weak this morning ;his blood pressure has been low since yesterday with a systolic at 90. Most of his medications had to be held He has no chest pain no shortness of breath no fever His INR is therapeutic now over 3 and heparin drip was discontinued A cardiology consult was obtained Physical Exam Vital Signs: Temp Pulse Resp BP Pulse Ox 98.5 F 68 20 91/49 L 98 05/16/16 07:49 05/16/16 07:49 05/16/16 07:49 05/16/16 07:49 05/16/16 07:49 Intake & Output 05/15/16 05/16/16 05/17/16 00:59 00:59 00:59 Intake Total 2514 2200 1062 Output Total 3925 1900 675 Balance -1411 300 387 Weight 155.9 kg 153.9 kg 152.8 kg General appearance: PRESENT: cooperative, mild distress, morbidly obese Head exam: PRESENT: atraumatic, normocephalic Eye exam: PRESENT: conjunctiva pink, EOMI, PERRLA. ABSENT: scleral icterus Neck exam: ABSENT: carotid bruit, JVD, lymphadenopathy, thyromegaly Respiratory exam: PRESENT: clear to auscultation daniela, decreased breath sounds. ABSENT: rales, rhonchi, wheezes Cardiovascular exam: PRESENT: RRR, systolic murmur. ABSENT: diastolic murmur, rubs GI/Abdominal exam: PRESENT: normal bowel sounds, soft. ABSENT: distended, guarding, mass, organolmegaly, rebound, tenderness Extremities exam: PRESENT: full ROM. ABSENT: calf tenderness, clubbing, pedal edema Neurological exam: PRESENT: alert, awake, oriented to person, oriented to place , oriented to time, oriented to situation, CN II-XII grossly intact. ABSENT: motor sensory deficit Results Laboratory Results: 05/15/16 01:58 05/16/16 05:26 05/16/16 05:26 Sodium 131.7 L Potassium 3.6 Chloride 92 L Carbon Dioxide 28 Anion Gap 12 BUN 41 H Creatinine 1.37 H Est GFR ( Amer) > 60 Est GFR (Non-Af Amer) 52 L Glucose 132 H Calcium 8.4 05/10/16 05/11/16 05/12/16 06:53 05:08 04:25 Troponin I 0.015 NT-Pro-B Natriuret Pep 1850 H 1960 H 05/14/16 04:50 Troponin I NT-Pro-B Natriuret Pep 3030 H 05/16/16 05/16/16 05:20 05:26 PT 36.3 H INR 3.44 APTT 122.1 H BUN 41 H Creatinine 1.37 H Impressions: Chest X-Ray 05/14/16 07:00 IMPRESSION: Cardiomegaly. CABG. Pacemaker. No acute infiltrates Facial Bones CT 05/14/16 10:46 IMPRESSION: No CT evidence of acute sinusitis. Bilateral maxilla periapical tooth root abscesses along the upper incisors related to advanced dental caries. Assessment & Plan - Diagnosis (1) Acute on chronic systolic (congestive) heart failure Is this a current diagnosis for this admission?: YesPlan: Patient has a EF of 20% At this time patient is probably over diuresed, and dry BUN and creatinine are on the rise we will give the patient IV fluids at 100 mL/h for 5 hours And hold most of his medications if the blood pressures less than 100 systolic A cardiology consult will be obtained Repeat echocardiogram (2) History of aortic valve replacement with metallic valve Is this a current diagnosis for this admission?: YesPlan: On chronic anticoagulation Now INR is is therapeutic (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
[2016-05-16] MEDS ORDERED: LISINOPRIL 5 MG TABLET PO SCH ×2 (10:00)
[2016-05-16] MEDS: OXYBUTYNIN CHLORIDE 5 MG TABLET PO SCH (11:53)
[2016-05-16] MEDS: MAGNESIUM OXIDE 400 MG TABLET PO SCH ×2 (11:53→17:15)
[2016-05-16] MEDS: VENLAFAXINE HCL 75 MG CAP.SR.24H PO SCH (11:53)
[2016-05-16] MEDS: CETIRIZINE 10 MG TABLET PO SCH (11:53)
[2016-05-16] MEDS: ASPIRIN 81 MG TABLET, ENT COATED PO SCH (11:53)
[2016-05-16] MEDS: NYSTATIN/DEXAMETH/DIPHEN SUSP 120 ML PO SCH ×4 (11:54→22:00)
[2016-05-16] MEDS: FLUTICASONE NASAL SPRAY 50 MCG/SPRY 120 SPRAY/16 GM NASL SCH ×2 (11:54→21:47)
[2016-05-16] MEDS: MINERAL OIL/PETROLATUM,WHITE CREAM 114 GM TP SCH (11:54)
[2016-05-16] MEDS: CARVEDILOL 3.125 MG TABLET PO SCH ×2 (12:01→21:50)
[2016-05-16] MEDS: DOCUSATE SODIUM 100 MG CAPSULE PO SCH ×2 (12:01→17:13)
[2016-05-16] MEDS: ISOSORBIDE MONONITRATE 30 MG TAB.ER.24H PO SCH (12:01)
[2016-05-16] MEDS ORDERED: NORMAL SALINE 250 ML IV ONE (12:45)
--- NOTE | 2016-05-16 14:38 | CONSULTATION REPORT E ---
Consultation Report NAME: AMANDA CALDERON : 1950 AGE: 66Y DATE: 05/16/2016 ROOM: 309 A TO: ROZ MILES M.D. FROM: MIROSLAVA AMADOR M.D. Requesting Physician REASON FOR CONSULTATION: Hypotension. HISTORY OF PRESENT ILLNESS: The patient is a 66-year-old male with morbid obesity, obstructive sleep apnea, coronary artery disease, history of stents, and history of prosthetic aortic valve replacement who was admitted on the with a 2-day history of slowly increasing dyspnea on exertion at rest, shortness of breath with PND and orthopnea. He was also at the height of his shortness of breath with having generalized chest tightness unlike his angina. Of note, the patient is not a very good historian. Initially he did have PND and orthopnea but no leg edema. At present, the patient states he has no orthopnea or PND but he feels generally weak. Since yesterday the patient's blood pressure has been in the 90s and the patient feels very weak. Of note, he was on Lasix and appears to be dehydrated. He had an echo here on 03/31/2015 which showed that it was not a good study but there was a suspicion of akinetic LV apex in the setting of severe global hypokinesis. LV ejection fraction was less than 20%. RV was not seen. There was kmabzfbd-rv-[id number] left atrial enlargement. There was no evidence of mitral valve collapse. There was tjecblpw-ja-tcnxzs mitral annular calcification with mild MS and mild MR probably. The prosthetic aortic valve has moderate stenosis with a peak gradient of 54 mmHg. It is not clear if this has progressed. The patient on the his Coumadin was subtherapeutic and the patient was placed on a heparin bridge. Today his INR is 3.44 and his heparin has been stopped. There are no symptoms of TIA or CVA. The patient has no palpitations. PAST MEDICAL HISTORY: The patient denies any history of hypertension. He states he has a history of coronary artery disease and prior to his prosthetic [employer] Samm aortic valve replacement in 2002 he had angioplasty of the LAD. Subsequently, at the time of aortic valve replacement, catheterization showed that the LAD was totally occluded and was not bypassable. He also states that last year he had a stent but he does not know which vessel. He also has severe cardiomyopathy and has biventricular AICD. He has also had aortic valve replacement with a [facility] Samm and is on Coumadin. He has a history of diabetes mellitus type 2, insulin dependent. He has no history of TIA or CVA. He has a history of obstructive sleep apnea and uses CPAP and also uses 4 L nasal oxygen as needed. He has a history of peripheral vascular disease and has had pevwb-gfc-[id number] amputation of the right lower extremity. He has also a past history of recurrent UTIs and is followed by a urologist. This admission the patient has no symptoms of a urinary tract infection. He has a dental abscess that is being treated with clindamycin. He denies any thyroid disease. He has a history of obstructive sleep apnea and uses CPAP at 11/14 cm of water. He has no history of asthma or COPD. He has no history of pulmonary embolism. There is no history of DVT. There is no history of atrial fibrillation or ventricular arrhythmias. No recent firing of his AICD. PAST SURGICAL HISTORY: 1. Right total knee replacement. 2. Right zmiea-[id number]-[id number] amputation. 3. Cardiac catheterization. 4. Angioplasty of the LAD which subsequently showed total occlusion. 5. Status post [employer] Samm aortic valve replacement for aortic stenosis which in March 2015 showed moderate peak gradient of 54 mmHg. This has probably progressed. FAMILY HISTORY: Positive for aortic valve disease and has a brother with aortic valve replacement. He also has a history of cardiomyopathy. He has a history of bladder cancer in his father and also pneumonia. Mother of complications of non-Hodgkin lymphoma. ALLERGIES: CEPHALEXIN. REVIEW OF SYSTEMS: CONSTITUTIONAL: He has no history of fevers, chills or rigors. Complains of generalized fatigue and weakness. HEAD: Denies headaches or head injury. EYES: No history of amblyopia or diplopia. No history of amaurosis fugax. EARS: He has slightly decreased hearing and one has to talk loud to him. No history of recurrent ear infections. No history of tinnitus. No history of vertigo. NOSE: No history of hay fever, no history of nosebleeds, no history of nasal polyps. MOUTH: No history of altered taste sensation. No history of ulcers in the mouth. No history of bleeding from the gums. THROAT: No history of odynophagia or dysphagia. No history of recurrent sore throats. SKIN: No psoriasis. No history of pruritus. No history of yellowish discoloration of the skin. NECK: No history of enlarged or painful neck swelling. No history of goiter. No history of C-spine arthritis. LUNGS: No history of asthma or COPD. No history of pulmonary embolism. No history of hemoptysis. No history of pleuritic chest pain. The patient has a history of sleep apnea and is on oxygen at 4 L as needed and also uses CPAP. CARDIAC: The patient has a history of CAD as mentioned earlier. Patient with atypical chest pain that sounds noncardiac because only at the height of shortness of breath he has generalized chest tightness but no wheezing. No history of leg edema. Past history of angioplasty of the LAD resulting in total occlusion. He also had another stent put in last year. His echocardiogram showed a peak gradient of 54 mmHg in March of 2015. This most likely has progressed. The patient has no palpitations, no history of atrial or ventricular arrhythmias. He has a biventricular AICD which has not fired. He has no history of syncope. He has chronic leg edema of the left leg since he has right BKA. GASTROINTESTINAL: No history of fatty food intolerance. No history of jaundice. No history of altered bowel movements. No history of GI bleed. History of GERD present, controlled with medication. No history of peptic ulcer disease. ENDOCRINE: History of diabetes mellitus, type 2, insulin dependent. No history of polydipsia or polyuria. No history of heat or cold intolerance. No history of thyroid disease. Although he has no history of chronic kidney disease, the patient's GFR is reduced to 52 mL which is mild acute renal failure, most likely secondary to over diuresis. He has a past history of multiple UTIs and sees a urologist but no symptoms recently. MUSCULOSKELETAL: He has a history of osteoarthritis but no collagen-vascular disease. CENTRAL NERVOUS SYSTEM: There is no history of TIA or CVA. No history of headaches or migraines. No history of gait imbalance. He does have obstructive sleep apnea. PSYCHIATRIC: History of depression present, controlled on medication. No history of anxiety. He states that his depression is well controlled with current medication. There is no suicidal ideation. VASCULAR: No history of calf claudication. No history of DVT. METABOLIC: The patient has a history of morbid obesity at present. Denies history of hyperlipidemia. CODE STATUS: THE PATIENT IS A FULL CODE. His is his surrogate healthcare decision maker. SOCIAL HISTORY: The patient does not smoke. There is no history of ETOH abuse. MEDICATIONS: 1. Tylenol 650 mg p.o. every 4 hours p.r.n. 2. Aspirin 81 mg p.o. daily. 3. Atorvastatin calcium 80 mg p.o. at bedtime. 4. Benzocaine/menthol Chloraseptic throat lozenges every 4 hours p.r.n. 5. He is on Coreg 3.125 mg p.o. every 12 hours. 6. He is on cetirizine hydrochloride 10 mg p.o. daily. 7. He is on clindamycin 600 mg IV x1, and he had 2 doses. 8. He is also on hypoglycemic precautions with glucose 40% gel 15 g p.o. and 30 g p.o. respectively p.r.n. hypoglycemia. 9. He is also on hypoglycemic precautions with dextrose 50% 12.5 g IV and 25 g IV p.r.n. hypoglycemia. 10. He is on Colace 100 mg p.o. b.i.d. 11. He is on fluticasone propionate 2 sprays nasal every 12 hours. 12. He is on Lasix 40 mg IV every 12 hours which has been held because of his blood pressure. 13. He is on clindamycin 600 mg IV every 8 hours. 14. He did get a normal saline bolus of 250 mL, and he is also on normal saline at 100 mL/hr. 15. He is on Accu-Cheks before meals, t.i.d. and at bedtime with sliding-scale insulin coverage. 16. He is on isosorbide mononitrate 30 mg p.o. daily. 17. He is on lisinopril 2.5 mg p.o. daily. 18. He is on magnesium oxide 800 mg p.o. b.i.d. 19. He is on Eucerin cream applied topically daily. 20. Earlier this morning he had 500 mL of normal saline IV. 21. He is also on nystatin/dexamethasone Magic Mouthwash 5 mL p.o. q.i.d. 22. He is on oxybutynin chloride 10 mg p.o. daily. 23. He is on Effexor XL 150 mg p.o. daily. 24. He is on Coumadin 10 mg p.o. at bedtime. PHYSICAL EXAMINATION: GENERAL: The patient is morbidly obese, at present in no acute distress except for complaints of generalized weakness. VITAL SIGNS: He is afebrile with a temperature of 98.5 degrees Fahrenheit. Pulse is 68 beats per minute. Blood pressure is 91/49. Respirations are 20 per minute. O2 sats are 98% on 4 L nasal cannula. HEENT: Head - Atraumatic, normocephalic. Eyes - Pupils are equal, round, regular, and reactive to light and accommodation. Extraocular movements are normal. There is no conjunctival pallor. There is no scleral icterus. Ears - Tympanic membranes are intact. External auditory canals are clear. Nose - There is no deviated nasal septum. There is no inflammation of the nasal mucous membranes. Mouth - Mucous membranes of the mouth are dry. Tongue is dry. There are no ulcers in the mouth. There is no bleeding from the gums. Throat - There is no redness of the oropharynx. There are no exudates in the throat. SKIN: There are no skin rashes. There is no petechia or ecchymosis. LUNGS: At present sound clear to auscultation and percussion without any rhonchi, rales or wheezing. HEART: S1 and S2 is heard. There is no S3 gallop and there is no S4 gallop. There is no murmur of significant mitral or tricuspid regurgitation. There is a murmur of aortic stenosis present. A prosthetic aortic valve click is heard and is crisp. There is no rub. ABDOMEN: Soft, obese, nontender. There is no hepatosplenomegaly. Bowel sounds are well heard. EXTREMITIES: Femorals are diminished. There are no femoral bruits. There is right rapqq-czi-bnbj amputation. Left leg has mild edema with chronic venostasis dermatitis changes. CENTRAL NERVOUS SYSTEM: The patient is conscious, awake, alert, and oriented x3 with no focal deficits. PSYCHIATRIC: The patient's judgement and insight are intact. His affect is normal. DIAGNOSTICS: His white count is 9800, hemoglobin is 10.8, hematocrit is 33.7, and platelet count is 242,000. The patient's group A strep is negative. The patient's sodium is 131.7, potassium 3.6, chloride 92, CO2 28. The patient's BUN is 41, creatinine 1.37, GFR is reduced at 52 mL, which is acute renal insufficiency, stage 2, which is mild. This is most likely due to over diuresis since the patient's prior GFRs were greater than 60. The patient's NT-proBNP is 3030. The patient's glucose was 157 on the . His glucose today is 132 and his calcium is 8.4. His cardiac enzymes have been negative x3 on the and . His TSH is 5.46. His INR was 4.3 on the . His EKG on 05/09/2016 shows atrial sensed and ventricular paced rhythm. His chest x-ray done yesterday shows no evidence of heart failure or infiltrates, but the patient does have cardiomegaly. There is a biventricular AICD lead and also an atrial lead present. His chest x-ray on admission showed mild congestive heart failure. His pro time today is 36.3, INR is 3.44, PTT is 122.1. His heparin which was used to bridge him has now been stopped. IMPRESSION: 1. Hypotension secondary to prosthetic aortic valve stenosis and over diureses. 2. Acute on chronic systolic heart failure, at present seems to be compensated. In fact, the patient is over diuresed. 3. Coronary artery disease with history of PTCA of the LAD that was totally occluded at the time of aortic valve replacement. He also had a stent last year. 4. History of TN in 1995, which he says was a non-Q-wave TN. 5. Prosthetic aortic valve in a patient with moderate degree of stenosis in March of 2015. Need to get an echo to see if this has progressed. 6. Cardiomyopathy, a combination of ischemic and dilated cardiomyopathy, and ejection fraction is 20%. 7. Noncardiac chest pain. 8. Obstructive sleep apnea. 9. Morbid obesity. 10. Peripheral vascular disease, status post right BKA. 11. Depression. 12. Dental abscess. 13. Diabetes mellitus, type 2, insulin dependent. 14. History of recurrent UTIs. RECOMMENDATIONS: Agree with stopping the patient's Lasix for now and gently hydrating the patient and check an echo. I would see if the patient will do better with Losartan rather than lisinopril. Continue Coreg for now. The patient states that he had an AICD check about a few months ago and he states that it was functioning well and the resynchronization therapy was working. We will need further records from [facility]. Of note, 50 minutes was spent on this patient with more than 50% of the time spent in direct patient care, reviewing his old records, in discussing the patient's laboratory data and EKG with the patient, and also coordinating care with the other attending physicians. I would recheck the patient's PT/INR in about 6 hours from the time of stopping the heparin drip. We will also get a repeat echo. DICTATING PHYSICIAN: ROZ MILES M.D. [id number] PHY#: [id number] ID: [id number] JOB#: [id number] ACCT: [id number] cc:ROZ MILES M.D. >
[2016-05-16] MEDS: INSULIN LISPRO 100 UNIT/ML 3 ML VIAL SUBCUT PRN (17:34)
--- NOTE | 2016-05-16 18:13 | XCELERA REPORT ---
[address] [address] Transthoracic Echocardiogram Report Name: AMANDA CALDERON Age: 66 yrs Gender: Male : 1950 Patient Status: Inpatient Patient Location: [id number]\S\309\S\A Study Date: 05/16/2016 03:40 PM Height: 76 in Weight: 336 lb BSA: 2.8 m2 Procedure: A two-dimensional transthoracic echocardiogram with color flow and Doppler was performed. Poor endocardial visualisation and por doppler interogation. Reason For Study: hypotension History: Hypotension. Ordering Physician: MARITZA DAWN Performed By: Syl Gilbert Interpretation Summary Recomend antibiotics prior to ,GI , and dental surgery. Poor endocardial visualisation and por doppler interogation The LV is probaly severely dilated.Mild LVH.Anterior wall not well visualised.Probably there is severe global hypokinesis ,with LVEF of 20% to 25%. The left atrium is severely dilated. There is no mitral valve stenosis. There is no evidence of mitral valve prolapse. There is a moderate amount of mitral regurgitation There is a mechanical aortic valve. No hemodynamically significant valvular aortic stenosis. There is a peak gradient of 13 mm of Hg. Probably mild TR.. RVSP is 35 mm of Hg ,with RA mean of 10 There is no pericardial effusion. Recomend antibiotics prior to ,GI , and dental surgery. MMode/2D Measurements \T\ Calculations RVDd: 3.6 cm LVIDd: 7.2 cmFS: 11.4 % Ao root diam: 3.3 cm IVSd: 1.2 cm LVIDs: 6.3 cmEDV(Teich): 269.2 ml LVPWd: 1.2 cmESV(Teich): 204.5 ml Ao root area: 8.7 cm2 EF(Teich): 24.0 % LA dimension: 5.5 cm LVOT diam: 2.3 cm LVOT area: 4.2 cm2 Doppler Measurements \T\ Calculations MV E max mira: MV P1/2t max mira: Ao V2 max: LV V1 max P.2 cm/sec 138.7 cm/sec 182.4 cm/sec 3.0 mmHg MV A max mira: MV P1/2t: 55.7 msec Ao max PG: LV V1 max: 59.8 cm/sec MVA(P1/2t): 4.0 cm2 13.3 mmHg 86.1 cm/sec MV E/A: 2.3 MV dec slope: DEJON(V,D): 2.0 cm2 729.7 cm/sec2 MV dec time: 0.18 sec PA V2 max: PI end-d mira: TR max mira: 80.9 cm/sec 116.2 cm/sec 246.5 cm/sec PA max P.6 mmHg TR max P.3 mmHg Left Ventricle The LV is probaly severely dilated.Mild LVH.Anterior wall not well visualised.Probably there is severe global hypokinesis ,with LVEF of 20% to 25%. Doppler measurements suggest normal left ventricular diastolic function. Right Ventricle The right ventricle is not well visualized secondary to technical limitations. Atria Right atrium not well visualized secondary to technical limitations. The left atrium is severely dilated. Mitral Valve There is no evidence of mitral valve prolapse. There is no mitral valve stenosis. There is a moderate amount of mitral regurgitation. Aortic Valve No hemodynamically significant valvular aortic stenosis. There is a peak gradient of 13 mm of Hg. No aortic regurgitation is present. There is a mechanical aortic valve. Tricuspid Valve There is no tricuspid stenosis. Probably mild TR.. RVSP is 35 mm of Hg ,with RA mean of 10. Pulmonic Valve There is no pulmonic valvular stenosis. There is a mild amount of pulmonic regurgitation. Great Vessels The aortic root is not well visualized. Effusions There is no pericardial effusion. : MARITZA DAWN > Elizabeth Bush
[2016-05-16 18:22] LABS: PROTHROMBIN TIME 34.3 SEC (11.4-15.4)
[2016-05-16] MEDS: ATORVASTATIN CALCIUM 80 MG TABLET PO SCH (21:46)
[2016-05-17] MEDS: ACETAMINOPHEN 325 MG TABLET PO PRN (04:02)
[2016-05-17 05:23] LABS: HEMATOCRIT 30.3 % (37.9-51.0); HEMOGLOBIN 9.8 g/dL (13.5-17.0); HGB HCT DIFFERENCE -0.9; MEAN CORPUSCULAR HGB CONC 32.3 g/dL (32.0-36.0); MEAN CORPUSCULAR VOLUME 74 fl (80-97); RED BLOOD COUNT 4.08 10^6/uL (4.35-5.55); RED CELL DISTRIBUTION WIDTH 20.2 % (11.5-14.0); WHITE BLOOD COUNT 14.4 10^3/uL (4.0-10.5)
[2016-05-17] MEDS: CLINDAMYCIN 600 MG/D5W RTU 600 MG/50 ML RTUPB IV SCH (05:32)
[2016-05-17 06:42] LABS: PROTHROMBIN TIME 31.1 SEC (11.4-15.4)
[2016-05-17] MEDS: INSULIN LISPRO 100 UNIT/ML 3 ML VIAL SUBCUT PRN ×3 (08:32→18:10)
[2016-05-17] MEDS: OXYBUTYNIN CHLORIDE 5 MG TABLET PO SCH (10:41)
[2016-05-17] MEDS: CETIRIZINE 10 MG TABLET PO SCH (10:41)
[2016-05-17] MEDS: VENLAFAXINE HCL 75 MG CAP.SR.24H PO SCH (10:41)
[2016-05-17] MEDS: ASPIRIN 81 MG TABLET, ENT COATED PO SCH (10:41)
[2016-05-17] MEDS: MAGNESIUM OXIDE 400 MG TABLET PO SCH ×2 (10:41→18:10)
[2016-05-17] MEDS: NYSTATIN/DEXAMETH/DIPHEN SUSP 120 ML PO SCH ×4 (10:41→22:00)
[2016-05-17] MEDS: DOCUSATE SODIUM 100 MG CAPSULE PO SCH ×2 (10:42→18:09)
[2016-05-17] MEDS: MINERAL OIL/PETROLATUM,WHITE CREAM 114 GM TP SCH (10:42)
[2016-05-17] MEDS: FLUTICASONE NASAL SPRAY 50 MCG/SPRY 120 SPRAY/16 GM NASL SCH ×2 (10:42→21:18)
[2016-05-17] MEDS: ISOSORBIDE MONONITRATE 30 MG TAB.ER.24H PO SCH (11:48)
[2016-05-17] MEDS: LOSARTAN POTASSIUM 25 MG TABLET PO SCH (11:48)
[2016-05-17] MEDS: CARVEDILOL 3.125 MG TABLET PO SCH ×2 (11:48→21:19)
[2016-05-17] MEDS: NYSTATIN 500000 UNIT/5 ML UDCUP PO SCH ×3 (15:17→21:18)
--- NOTE | 2016-05-17 16:40 | PDOC PROGRESS REPORT ---
Subjective Progress Note for:: 05/17/16 Subjective:: feels very tired , no chest pain , no fever or SOB BP was adequate this am at 120 systolic , then dropped again at 80/50 midodrine was initiated and discharge postponed Physical Exam Vital Signs: Temp Pulse Resp BP Pulse Ox 97.8 F 94 20 121/77 96 05/17/16 11:29 05/17/16 14:00 05/17/16 11:29 05/17/16 11:29 05/17/16 11:29 Intake & Output 05/16/16 05/17/16 05/18/16 00:59 00:59 00:59 Intake Total 2200 4530 758 Output Total 1900 2725 1575 Balance 300 1805 -817 Weight 153.9 kg 152.8 kg 153 kg General appearance: PRESENT: morbidly obese Head exam: PRESENT: atraumatic, normocephalic Eye exam: PRESENT: conjunctiva pale Ear exam: PRESENT: normal external ear exam Respiratory exam: PRESENT: clear to auscultation daniela, decreased breath sounds. ABSENT: rales, rhonchi, wheezes Cardiovascular exam: PRESENT: RRR, systolic murmur. ABSENT: diastolic murmur, rubs Pulses: PRESENT: normal dorsalis pedis pul GI/Abdominal exam: PRESENT: normal bowel sounds, soft. ABSENT: distended, guarding, mass, organolmegaly, rebound, tenderness Neurological exam: PRESENT: alert, awake, oriented to person, oriented to place , oriented to time, oriented to situation, CN II-XII grossly intact. ABSENT: motor sensory deficit Skin exam: PRESENT: dry, intact, warm. ABSENT: cyanosis, rash Results Laboratory Results: 05/17/16 04:50 05/16/16 05:26 05/17/16 04:50 WBC 14.4 H RBC 4.08 L Hgb 9.8 L Hct 30.3 L MCV 74 L MCH 24.0 L MCHC 32.3 RDW 20.2 H Plt Count 184 05/10/16 05/11/16 05/12/16 06:53 05:08 04:25 Troponin I 0.015 NT-Pro-B Natriuret Pep 1850 H 1960 H 05/14/16 04:50 Troponin I NT-Pro-B Natriuret Pep 3030 H Impressions: Chest X-Ray 05/14/16 07:00 IMPRESSION: Cardiomegaly. CABG. Pacemaker. No acute infiltrates Facial Bones CT 05/14/16 10:46 IMPRESSION: No CT evidence of acute sinusitis. Bilateral maxilla periapical tooth root abscesses along the upper incisors related to advanced dental caries. Assessment & Plan - Diagnosis (1) Acute on chronic systolic (congestive) heart failure Is this a current diagnosis for this admission?: Yes (2) History of aortic valve replacement with metallic valve Is this a current diagnosis for this admission?: Yes (3) cylinder filler current use of anticoagulant therapy Is this a current diagnosis for this admission?: YesPlan: INR therapeutic at this time continue present regimen (4) Morbid obesity with BMI of 45.0-49.9, adult Is this a current diagnosis for this admission?: Yes (5) Dental abscess Is this a current diagnosis for this admission?: Yes (6) Hypotension Qualifiers: Hypotension type: unspecified hypotension type Qualified Code(s): I95.9 - Hypotension, unspecified Is this a current diagnosis for this admission?: YesPlan: was likely secondary to mild dehydration and severe systolic dysfunction will initiate midodrine and reevaluate in am - Time Time Spent with patient: 25-34 minutes
[2016-05-17] MEDS ORDERED: MIDODRINE HCL 5 MG TABLET PO ONE (17:00)
--- NOTE | 2016-05-17 17:53 | PROGRESS NOTE E ---
Progress Note NAME: AMANDA CALDERON : 1950 AGE: 66Y DATE: 05/17/2016 ROOM: 309 SUBJECTIVE: The patient complains of less weakness, but still states he does not feel very good. His leg edema is much improved. His blood pressure is improved. The patient remains in sinus rhythm. There is no chest pain or discomfort. There is orthopnea present, but no PND. There are no palpitations or syncope and no abnormalities on the monitor. OBJECTIVE: GENERAL: On examination, the patient is moderately obese in no acute distress. VITAL SIGNS: He is afebrile with a temperature of 97.8 degrees Fahrenheit. Pulse is 93 beats per minute. Blood pressure is 121/77. Respirations 28 per minute. Oxygen saturations are 96% on 4.5 liters of nasal O2. HEENT: Head: Atraumatic, normocephalic. Eyes: Pupils equal, round, regular. Reactive to light and accommodation. Extraocular movements are normal. There is no conjunctival pallor. There is no scleral icterus. ENT is negative. NECK: Supple. There is no JVD. Carotids are equal. There is no bruit. There is no goiter. Trachea is central. LUNGS: At present are clear to auscultation and percussion. HEART: S1 and S2 are heard. There is no S4 gallop. There is no S3 gallop. There is a murmur of mild aortic stenosis present. The prosthetic click of the aortic valve is well heard. There are no rubs. There are no gallops. ABDOMEN: Soft, obese, nontender. There is no hepatosplenomegaly. Bowel sounds are well heard. There is no tenderness or masses. EXTREMITIES: Femorals are diminished. There are no femoral bruits. There is right [id number]-[id number]-[id number] amputation. Left leg has mild edema with chronic venostasis dermatitis changes. There is no calf tenderness. CENTRAL NERVOUS SYSTEM: The patient is conscious, awake, alert, and oriented x3 with no focal deficits. PSYCHIATRIC: The patient's judgement and insight are intact. His affect is normal. LABORATORY DATA: The patient's white count is 14,400, hemoglobin is 9.8, hematocrit is 30.3, platelet count is 184,000. The patient's ProTime is 31.1. INR is therapeutic at 2.84. IMPRESSION: 1. HYPOTENSION SECONDARY TO OVER DIURESIS, NOW BLOOD PRESSURE IS STABLE. 2. [id number] SYSTOLIC HEART FAILURE, AT PRESENT SEEMS TO BE COMPENSATED. IN FACT, THE PATIENT HAS BEEN OVER DIURESED AND HAS BEEN REHYDRATED. 3. CORONARY ARTERY DISEASE, HISTORY OF PERCUTANEOUS TRANSLUMINAL CORONARY ANGIOPLASTY OF THE LEFT ANTERIOR DESCENDING WITH TOTAL OCCLUSION AT THE TIME OF AORTIC VALVE REPLACEMENT. HE ALSO HAD A STENT LAST YEAR. 4. HISTORY OF NON-ST ELEVATION MYOCARDIAL INFARCTION IN 1995. 5. PROSTHETIC AORTIC VALVE IN A PATIENT WITH ONLY MILD DEGREE OF STENOSIS, WHICH IS EXPECTED IN A [facility] AORTIC VALVE AND AORTIC OCCLUSION. THE PATIENT IS ON CHRONIC ANTICOAGULATION AND WELL COMPENSATED. 6. CARDIOMYOPATHY, A COMBINATION OF ISCHEMIC AND DILATED CARDIOMYOPATHY. EJECTION FRACTION OF 20%. 7. NONCARDIAC CHEST PAIN, NO RECURRENCE. 8. OBSTRUCTIVE SLEEP APNEA ON CPAP. 9. MORBID OBESITY. 10. PERIPHERAL VASCULAR DISEASE STATUS POST RIGHT BKA. 11. DEPRESSION. 12. DENTAL ABSCESS. 13. DIABETES MELLITUS, TYPE 2, INSULIN DEPENDENT. 14. HISTORY OF RECURRENT URINARY TRACT INFECTIONS. PLAN: Would continue the patient on Coreg and antibiotics. Continue antihypoglycemic precautions. Continue Lasix 40 mg p.o. b.i.d. The patient has bee instructed to take an extra 40 mg if he has weight gain of 2 pounds in 1 day and/or if he has symptoms of shortness of breath, increasing leg edema, PND, or orthopnea. The importance of weighing the patient daily has been discussed with the patient. Also, it has been discussed with the patient that he should restrict his fluids to 1200 mL or less for each 24 hour period. Continue isosorbide and losartan. Continue Coumadin. Note that the patient has been started on midodrine, which has helped his blood pressure. Cardiac condition is stable. We will follow with you. The patient's echo findings were discussed with the patient. It is a poor quality echo, but shows the ejection fraction is 20% to 25%, LV is severely dilated, and there is mild LVH as well, though anterior wall is not well visualized. Left atrium is severely dilated. There is a moderate amount of mitral regurgitation. There is a mechanical aortic valve with a peak gradient of 13 mmHg and probably mild tricuspid regurgitation with right ventricular systolic pressure of *------* mmHg. The patient has been instructed to take antibiotics prior to GI, , and dental surgeries/procedures. Note, 40 minutes spent on this patient with more than 50% of the time spent in direct patient care and also discussions with CHF consulting and teaching and education to the patient. Also, the need to take daily weights and to watch his salt intake and also to decrease his fluid intake as mentioned earlier has been discussed. Also, echocardiogram has been discussed with the patient. The patient is a FULL CODE. His is the surrogate healthcare decision-maker for the patient. Also, the need to get the AICD checked periodically has been discussed with the patient. We will follow with you. Discussed with the hospitalist. His medications have been reviewed. Note that the patient has been started on midodrine and also his lisinopril has been stopped and the patient is now on losartan. The patient states that he does not have a director stage and wants to follow up with me. The phone number given to the patient. DICTATING PHYSICIAN: ROZ MILES M.D. [id number] SUSANNE#: [id number] ID: [id number] JOB#: [id number] ACCT: [id number] cc: >
[2016-05-17] MEDS: MIDODRINE HCL 5 MG TABLET PO SCH (18:10)
[2016-05-17] MEDS: CLINDAMYCIN HCL 150 MG CAPSULE PO SCH (18:10)
[2016-05-17] MEDS: FUROSEMIDE 40 MG TABLET PO SCH (18:10)
[2016-05-17] MEDS: ATORVASTATIN CALCIUM 80 MG TABLET PO SCH (21:18)
[2016-05-17] MEDS ORDERED: WARFARIN SODIUM 2.5 MG TABLET PO SCH (22:00)
[2016-05-17] MEDS ORDERED: WARFARIN SODIUM 5 MG TABLET PO SCH (22:00)
[2016-05-18] MEDS: CLINDAMYCIN HCL 150 MG CAPSULE PO SCH ×5 (00:16→23:24)
[2016-05-18 06:16] LABS: PROTHROMBIN TIME 31.3 SEC (11.4-15.4)
[2016-05-18] MEDS: NYSTATIN 500000 UNIT/5 ML UDCUP PO SCH ×4 (09:50→21:13)
[2016-05-18] MEDS: FUROSEMIDE 40 MG TABLET PO SCH ×2 (09:50→17:43)
[2016-05-18] MEDS: DOCUSATE SODIUM 100 MG CAPSULE PO SCH ×2 (09:51→17:43)
[2016-05-18] MEDS: ISOSORBIDE MONONITRATE 30 MG TAB.ER.24H PO SCH (09:51)
[2016-05-18] MEDS: OXYBUTYNIN CHLORIDE 5 MG TABLET PO SCH (09:51)
[2016-05-18] MEDS: ASPIRIN 81 MG TABLET, ENT COATED PO SCH (09:51)
[2016-05-18] MEDS: MIDODRINE HCL 5 MG TABLET PO SCH ×3 (09:51→17:43)
[2016-05-18] MEDS: VENLAFAXINE HCL 75 MG CAP.SR.24H PO SCH (09:51)
[2016-05-18] MEDS: CETIRIZINE 10 MG TABLET PO SCH (09:52)
[2016-05-18] MEDS: MAGNESIUM OXIDE 400 MG TABLET PO SCH ×2 (09:52→17:42)
[2016-05-18] MEDS: FLUTICASONE NASAL SPRAY 50 MCG/SPRY 120 SPRAY/16 GM NASL SCH ×2 (09:53→21:13)
[2016-05-18] MEDS: NYSTATIN/DEXAMETH/DIPHEN SUSP 120 ML PO SCH ×4 (09:53→22:00)
[2016-05-18] MEDS: CARVEDILOL 3.125 MG TABLET PO SCH ×2 (09:54→21:16)
[2016-05-18] MEDS: LOSARTAN POTASSIUM 25 MG TABLET PO SCH (09:54)
[2016-05-18] MEDS: MINERAL OIL/PETROLATUM,WHITE CREAM 114 GM TP SCH (09:54)
--- NOTE | 2016-05-18 16:11 | PDOC PROGRESS REPORT ---
Subjective Progress Note for:: 05/18/16 Subjective:: Patient has no chest pain and no shortness of breath He still feels weak Is blood pressure is 98/50 He was started yesterday on midodrine 5 mg 3 times a day; it was increased to 10 mg 3 times a day as his blood pressure was still running on the low side His cardiac medications have been on hold as to blood pressures too low Patient is otherwise asymptomatic His INR is therapeutic Physical Exam Vital Signs: Temp Pulse Resp BP Pulse Ox 97.5 F 84 16 98/58 L 95 05/18/16 08:09 05/18/16 14:00 05/18/16 08:09 05/18/16 08:09 05/18/16 08:09 Intake & Output 05/17/16 05/18/16 05/19/16 00:59 00:59 00:59 Intake Total 4530 1955 2100 Output Total 2725 1925 600 Balance 1805 30 1500 Weight 152.8 kg 153 kg 159.5 kg General appearance: PRESENT: no acute distress, cooperative Head exam: PRESENT: atraumatic, normocephalic Eye exam: PRESENT: conjunctiva pink, EOMI, PERRLA. ABSENT: scleral icterus Respiratory exam: PRESENT: clear to auscultation daniela. ABSENT: rales, rhonchi, wheezes Cardiovascular exam: PRESENT: RRR, systolic murmur. ABSENT: diastolic murmur, rubs Pulses: PRESENT: normal dorsalis pedis pul GI/Abdominal exam: PRESENT: normal bowel sounds, soft. ABSENT: distended, guarding, mass, organolmegaly, rebound, tenderness Extremities exam: ABSENT: calf tenderness, joint swelling, +1 edema Neurological exam: PRESENT: alert, awake, oriented to person, oriented to place , oriented to time, oriented to situation, CN II-XII grossly intact. ABSENT: motor sensory deficit Results Laboratory Results: 05/17/16 04:50 05/16/16 05:26 05/10/16 05/11/16 05/12/16 06:53 05:08 04:25 Troponin I 0.015 NT-Pro-B Natriuret Pep 1850 H 1960 H 05/14/16 04:50 Troponin I NT-Pro-B Natriuret Pep 3030 H Impressions: Chest X-Ray 05/14/16 07:00 IMPRESSION: Cardiomegaly. CABG. Pacemaker. No acute infiltrates Facial Bones CT 05/14/16 10:46 IMPRESSION: No CT evidence of acute sinusitis. Bilateral maxilla periapical tooth root abscesses along the upper incisors related to advanced dental caries. Assessment & Plan - Diagnosis (1) Acute on chronic systolic (congestive) heart failure Is this a current diagnosis for this admission?: Yes (2) History of aortic valve replacement with metallic valve Is this a current diagnosis for this admission?: Yes (3) assisted current use of anticoagulant therapy Is this a current diagnosis for this admission?: YesPlan: Continue Coumadin Alternate 10mg and 12.5 mg qpm (4) Morbid obesity with BMI of 45.0-49.9, adult Is this a current diagnosis for this admission?: Yes (5) Dental abscess Is this a current diagnosis for this admission?: Yes (6) Hypotension Qualifiers: Hypotension type: unspecified hypotension type Qualified Code(s): I95.9 - Hypotension, unspecified Is this a current diagnosis for this admission?: YesPlan: Continue midodrine Resume medications when the blood pressure is over 100 systolic Patient may be discharged in a.m. if he is hemodynamically stable - Time Time Spent with patient: 25-34 minutes
[2016-05-18] MEDS: INSULIN LISPRO 100 UNIT/ML 3 ML VIAL SUBCUT PRN (17:46)
[2016-05-18] MEDS: ATORVASTATIN CALCIUM 80 MG TABLET PO SCH (21:12)
--- NOTE | 2016-05-19 02:58 | PROGRESS NOTE E ---
Progress Note NAME: AMANDA CALDERON : 1950 AGE: 66Y DATE: 05/18/2016 ROOM: 309 SUBJECTIVE: The patient still has some weakness and his blood pressure is low in spite of the midodrine 5 mg p.o. t.i.d. He says his shortness of breath is much better and states that he still gets a little short of breath when he ambulates. There is no chest pain. No discomfort. There are no palpitations. The patient has no PND. There is no leg edema. The patient still has some orthopnea. There are no GI or CVA symptoms. OBJECTIVE: GENERAL: On examination, the patient is morbidly obese, in no acute distress. VITAL SIGNS: He is afebrile with a temperature of 97.8 degrees Fahrenheit. Pulse is 75 beats per minute. Blood pressure is 99/61. Respirations are 20 per minute. O2 saturations are 90% on room air. HEENT: Head is atraumatic, normocephalic. Eyes: Pupils are equal, round, regular, reactive to light and accommodation. There is no conjunctival pallor. There is no scleral icterus. ENT is negative. NECK: Supple. There is no JVD. Carotids are equal. There is no bruit. There is no goiter. Trachea is central. LUNGS: Clear to auscultation and percussion. HEART: S1 and S2 is heard. There is no S3 gallop. There is no S4 gallop. There is murmur of mild aortic stenosis present. There is prosthetic click of aortic valve. There are no rubs. ABDOMEN: Soft, obese, nontender. There is no hepatosplenomegaly. Bowel sounds are well heard. There is no tenderness or masses. EXTREMITIES: Femorals are diminished. There are no femoral bruits. There is a right BKA. The left leg has chronic venostasis dermatitis, but no edema today. There is no calf tenderness. There is no cyanosis or clubbing. CENTRAL NERVOUS SYSTEM: The patient is conscious, awake, alert, oriented x3 with no focal deficits. PSYCHIATRIC: The patient's judgment and insight are intact. The affect is normal. INTAKE/OUTPUT: The patient's 24-hour intake is 3710 mL. Output is 1650 mL. LABORATORY DATA: The patient's ProTime is 31.3 and his INR is therapeutic at 2.86. The patient's blood sugar is 130 and 102. Note that the patient's Coreg, Lasix and ARB were all being held. IMPRESSION: 1. HYPOTENSION, secondary to old diuresis and also due to most likely forward pump failure with a low ejection fraction. Note still blood pressure is in the high 90s with the patient being on midodrine 5 mg p.o. t.i.d. 2. [id number] SYSTOLIC HEART FAILURE. At present, seems to be compensated; in fact, even the patient still has no signs of overt congestive heart failure by exam. 3. CORONARY ARTERY DISEASE, HISTORY OF PERCUTANEOUS STENTS, PERMANENT AND CORONARY ANGIOPLASTY IN LEFT ANTERIOR DESCENDING ARTERY WITH TOTAL OCCLUSION AT THE TIME OF AORTIC VALVE REPLACEMENT. He also had a stent last year, records awaited. 4. PAST HISTORY OF NON-ST ELEVATION MYOCARDIAL INFARCTION IN 1995. At present, patient with no anginal symptoms. 5. PROSTHETIC AORTIC VALVE REPLACEMENT WITH MORE THAN MILD DEGREE OF STENOSIS, which was expected with [facility] aortic valve and the patient is on chronic anticoagulation, which is therapeutic. 6. CARDIOMYOPATHY, A COMBINATION OF ISCHEMIC AND DILATED CARDIOMYOPATHY, with ejection fraction of 20%. 7. NON-CARDIAC CHEST PAIN. No recurrence. 8. OBSTRUCTIVE SLEEP APNEA, ON CPAP. 9. MORBID OBESITY. 10. PERIPHERAL VASCULAR DISEASE, STATUS POST RIGHT BELOW-KNEE AMPUTATION. 11. DEPRESSION. 12. DENTAL ABSCESS. The patient has no complaints about this. The patient is on antibiotics. 13. DIABETES MELLITUS TYPE 2, INSULIN-DEPENDENT. 14. HISTORY OF RECURRENT URINARY TRACT INFECTIONS. 15. CHRONIC KIDNEY DISEASE STAGE III. RECOMMENDATION: We will recheck the patient's kidney functions to see if this was improving with rehydration. Agree with holding Coreg and his ARB and Lasix at present. Continue antibiotics. We will increase the patient's midodrine to 10 mg p.o. 3 times a day, with the last dose taken 4 hours prior to the patient going to sleep at night. Note this was discussed with the patient. The patient states that he wants a local clinic mgr and is willing to followup with me. His medications have been reviewed and the case has been discussed with the hospitalist taking care of the patient. TIME SPENT: Note 30 minutes spent on this patient, with more than 50% of the time spent on direct patient care. Also, yesterday, the patient had CHF teaching by the teaching nurse. The patient seems to have better understanding of his position. Continue the patient on CPAP. Thanking you. DICTATING PHYSICIAN: ROZ MILES M.D. [id number] PHY#: [id number] ID: [id number] JOB#: [id number] ACCT: [id number] cc: >
[2016-05-19] MEDS: CLINDAMYCIN HCL 150 MG CAPSULE PO SCH ×4 (06:23→23:17)
[2016-05-19] MEDS: ISOSORBIDE MONONITRATE 30 MG TAB.ER.24H PO SCH (09:30)
[2016-05-19] MEDS: VENLAFAXINE HCL 75 MG CAP.SR.24H PO SCH (09:30)
[2016-05-19] MEDS: ASPIRIN 81 MG TABLET, ENT COATED PO SCH (09:30)
[2016-05-19] MEDS: DOCUSATE SODIUM 100 MG CAPSULE PO SCH ×2 (09:32→18:25)
[2016-05-19] MEDS: MIDODRINE HCL 5 MG TABLET PO SCH ×3 (09:32→18:12)
[2016-05-19] MEDS: FUROSEMIDE 40 MG TABLET PO SCH ×2 (09:32→18:25)
[2016-05-19] MEDS: OXYBUTYNIN CHLORIDE 5 MG TABLET PO SCH (09:32)
[2016-05-19] MEDS: CETIRIZINE 10 MG TABLET PO SCH (09:33)
[2016-05-19] MEDS: MAGNESIUM OXIDE 400 MG TABLET PO SCH ×2 (09:33→18:12)
[2016-05-19] MEDS: NYSTATIN 500000 UNIT/5 ML UDCUP PO SCH ×4 (09:33→21:10)
[2016-05-19] MEDS: NYSTATIN/DEXAMETH/DIPHEN SUSP 120 ML PO SCH ×4 (09:34→22:00)
[2016-05-19] MEDS: LOSARTAN POTASSIUM 25 MG TABLET PO SCH (09:34)
[2016-05-19] MEDS: CARVEDILOL 3.125 MG TABLET PO SCH ×2 (09:34→21:13)
[2016-05-19] MEDS: MINERAL OIL/PETROLATUM,WHITE CREAM 114 GM TP SCH (09:34)
[2016-05-19] MEDS: FLUTICASONE NASAL SPRAY 50 MCG/SPRY 120 SPRAY/16 GM NASL SCH ×2 (09:34→21:10)
--- NOTE | 2016-05-19 11:35 | PDOC PROGRESS REPORT ---
Subjective Progress Note for:: 05/19/16 Subjective:: Patient is doing well his blood pressure is now adequate at 110 / 60; He did receive this morning Coreg and lisinopril We will continue to monitor his blood pressure He has no chest pain no shortness of breath no abdominal pain nausea vomiting Physical Exam Vital Signs: Temp Pulse Resp BP Pulse Ox 97.2 F 73 20 119/71 100 05/19/16 08:02 05/19/16 08:02 05/19/16 08:02 05/19/16 08:02 05/19/16 08:02 Intake & Output 05/18/16 05/19/16 05/20/16 00:59 00:59 00:59 Intake Total 1954 3632 452 Output Total 1924 3500 950 Balance 30 132 -498 Weight 153 kg 159.5 kg 157.4 kg General appearance: PRESENT: obese Head exam: PRESENT: atraumatic, normocephalic Eye exam: PRESENT: conjunctiva pink, EOMI, PERRLA. ABSENT: scleral icterus Neck exam: ABSENT: carotid bruit, JVD, lymphadenopathy, thyromegaly Respiratory exam: PRESENT: clear to auscultation daniela. ABSENT: rales, rhonchi, wheezes GI/Abdominal exam: PRESENT: normal bowel sounds, soft. ABSENT: distended, guarding, mass, organolmegaly, rebound, tenderness Extremities exam: PRESENT: full ROM. ABSENT: calf tenderness, clubbing, pedal edema Neurological exam: PRESENT: CN II-XII grossly intact Results Laboratory Results: 05/17/16 04:50 05/16/16 05:26 05/10/16 05/11/16 05/12/16 06:53 05:08 04:25 Troponin I 0.015 NT-Pro-B Natriuret Pep 1850 H 1960 H 05/14/16 04:50 Troponin I NT-Pro-B Natriuret Pep 3030 H Impressions: Chest X-Ray 05/14/16 07:00 IMPRESSION: Cardiomegaly. CABG. Pacemaker. No acute infiltrates Facial Bones CT 05/14/16 10:46 IMPRESSION: No CT evidence of acute sinusitis. Bilateral maxilla periapical tooth root abscesses along the upper incisors related to advanced dental caries. 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 Is this a current diagnosis for this admission?: Yes (4) Morbid obesity with BMI of 45.0-49.9, adult Is this a current diagnosis for this admission?: Yes (5) Dental abscess Is this a current diagnosis for this admission?: Yes (6) Hypotension Qualifiers: Hypotension type: unspecified hypotension type Qualified Code(s): I95.9 - Hypotension, unspecified Is this a current diagnosis for this admission?: Yes (7) Hypotension Qualifiers: Hypotension type: unspecified hypotension type Qualified Code(s): I95.9 - Hypotension, unspecified Is this a current diagnosis for this admission?: YesPlan: Hypotension likely to be secondary to poor ejection fraction Continue midodrine Patient may be discharged tomorrow if his blood pressure remained stable - Time Time Spent with patient: 25-34 minutes
[2016-05-19] MEDS ORDERED: CARVEDILOL 3.125 MG TABLET PO ONE (12:00)
[2016-05-19] MEDS ORDERED: LISINOPRIL 5 MG TABLET PO ONE (12:00)
--- NOTE | 2016-05-19 12:44 | PROGRESS NOTE E ---
Progress Note NAME: AMANDA CALDERON : 1950 AGE: 66Y DATE: 05/19/2016 ROOM: 309 SUBJECTIVE: The patient denies any chest pain or discomfort. There is no shortness of breath. He still has some degree of orthopnea. There are no anginal symptoms. There is no recurrence of atrial fibrillation or flutter. There are no TIA or CVA symptoms. There is no bleeding on anticoagulation. The patient has no leg edema. OBJECTIVE: GENERAL: On examination, the patient is morbidly obese, but in no acute distress. VITAL SIGNS: He is afebrile with a temperature of 97.2 degrees Fahrenheit, pulse is 73 beats per minute, blood pressure is 119/71, respirations are 20 per minute, O2 sats are 100% on CPAP. HEENT: Head is atraumatic, normocephalic. Eyes: Pupils are equal, round, regular, reactive to light and accommodation. Extraocular movements are normal. There is no conjunctival pallor. There is no scleral icterus. ENT is negative. NECK: Supple. There is no JVD. Carotids are equal. There is no bruit. There is no goiter. Trachea is central. LUNGS: Clear to auscultation and percussion. HEART: S1 and S2 is heard. There is no S3 gallop. There is no S4 gallop. There is murmur of mild aortic stenosis present. There is prosthetic click of aortic valve heard well. There are no rubs. There is no murmur of aortic regurgitation. ABDOMEN: Soft, obese, nontender. There is no hepatosplenomegaly. Bowel sounds are well heard. There are no tender areas or masses. EXTREMITIES: Femorals are diminished. There are no femoral bruits. There is a right [id number]-[id number] amputation. The left leg has chronic venostasis dermatitis, but no edema. There is no calf tenderness. There is no cyanosis or clubbing. CENTRAL NERVOUS SYSTEM: The patient is conscious, awake, alert, oriented x3 with no focal deficits. PSYCHIATRIC: The patient's judgment and insight are intact. His affect is normal. DIAGNOSTIC DATA: The patient's glucose is 139 and 186. His pro time is awaited. IMPRESSION: 1. HYPOTENSION. THIS IS RESOLVED. THE PATIENT HAS A LOW-NORMAL BLOOD PRESSURE WITH SOME ROOM FOR RESTARTING HIS MEDICATIONS. THIS HAS BEEN ACCOMPLISHED WITH THE PATIENT BEING ON MIDODRINE 10 MG P.O. T.I.D. 2. ACUTE ON CHRONIC SYSTOLIC HEART FAILURE. AT PRESENT, SEEMS TO BE COMPENSATED. THERE ARE NO SIGNS OF CONGESTIVE HEART FAILURE BY EXAM. 3. CORONARY ARTERY DISEASE, HISTORY OF PERCUTANEOUS INTERVENTION OF THE LEFT ANTERIOR DESCENDING ARTERY WITH TOTAL OCCLUSION AT THE TIME OF [facility] AORTIC VALVE REPLACEMENT. HE ALSO HAD A STENT LAST YEAR, RECORDS AWAITED. 4. PAST HISTORY OF NON-ST ELEVATION MYOCARDIAL INFARCTION IN 1995. AT PRESENT, PATIENT WITH NO ANGINAL SYMPTOMS. 5. PROSTHETIC AORTIC VALVE REPLACEMENT WITH A MILD DEGREE OF STENOSIS, WHICH IS EXPECTED WITH [facility] AORTIC VALVE. THE PATIENT IS ON CHRONIC ANTICOAGULATION. 6. CARDIOMYOPATHY, A COMBINATION OF ISCHEMIC AND DILATED CARDIOMYOPATHY, WITH EJECTION FRACTION OF 20%. 7. NON-CARDIAC CHEST PAIN. NO RECURRENCE. 8. OBSTRUCTIVE SLEEP APNEA, ON CPAP. 9. MORBID OBESITY. 10. PERIPHERAL VASCULAR DISEASE, STATUS POST RIGHT BELOW-KNEE AMPUTATION. 11. DEPRESSION. 12. DENTAL ABSCESS, SEEMS TO HAVE RESOLVED ON ANTIBIOTICS. THE PATIENT DOES NOT COMPLAIN OF ANY DENTAL PAIN. 13. DIABETES MELLITUS TYPE 2, INSULIN DEPENDENT. 14. HISTORY OF RECURRENT URINARY TRACT INFECTIONS. 15. CHRONIC KIDNEY DISEASE. RECOMMENDATION: I would restart the patient's Coreg at 3.125 mg p.o. now and then q. 12 hours and then after the first dose of Coreg, would wait for about an hour to recheck the patient's blood pressure to see if the patient can be restarted on Lisinopril. We will recheck the patient's kidney functions in the a.m. tomorrow. Also, we will make sure that the patient his gets daily PT/INR. I would stop the patient's IV fluids and possibly restart the patient on Lasix 40 mg p.o. daily. This has been discussed with the patient and also with the attending physician taking care of this patient. His medications have been reviewed. I also discussed with the nurse taking care of the patient. TIME SPENT: Note 30 minutes were spent on this patient, with more than 50% of the time spent on direct patient care. Will follow with you. Thanking you. DICTATING PHYSICIAN: ROZ MILES M.D. [id number] PHY#: [id number] ID: [id number] JOB#: [id number] ACCT: [id number] cc: >
[2016-05-19] MEDS: INSULIN LISPRO 100 UNIT/ML 3 ML VIAL SUBCUT PRN (12:57)
[2016-05-19 14:13] LABS: PROTHROMBIN TIME 25.8 SEC (11.4-15.4)
[2016-05-19] MEDS: ATORVASTATIN CALCIUM 80 MG TABLET PO SCH (21:10)
[2016-05-20 05:29] LABS: HEMATOCRIT 31.4 % (37.9-51.0); HEMOGLOBIN 9.8 g/dL (13.5-17.0); MEAN CORPUSCULAR HEMOGLOBIN 23.8 pg (27.0-33.4); MEAN CORPUSCULAR HGB CONC 31.4 g/dL (32.0-36.0); MEAN CORPUSCULAR VOLUME 76 fl (80-97); RED BLOOD COUNT 4.13 10^6/uL (4.35-5.55); RED CELL DISTRIBUTION WIDTH 19.9 % (11.5-14.0); WHITE BLOOD COUNT 11.8 10^3/uL (4.0-10.5)
[2016-05-20 05:42] LABS: PROTHROMBIN TIME 22.1 SEC (11.4-15.4)
[2016-05-20 05:49] LABS: ANION GAP 10 (5-19); BLOOD UREA NITROGEN 36 mg/dL (7-20); CALCIUM 9.3 mg/dL (8.4-10.2); CARBON DIOXIDE 29 mmol/L (22-30); CHLORIDE 98 mmol/L (98-107); CREATININE RESULT 0.86 mg/dL (0.52-1.25); GLUCOSE 121 mg/dL (75-110); POTASSIUM 4.4 mmol/L (3.6-5.0); SODIUM 137.3 mmol/L (137-145)
[2016-05-20] MEDS: CLINDAMYCIN HCL 150 MG CAPSULE PO SCH ×2 (06:24→11:19)
[2016-05-20] MEDS ORDERED: WARFARIN SODIUM 5 MG TABLET PO ONE (10:00)
[2016-05-20] MEDS ORDERED: ENOXAPARIN SODIUM INJ 150 MG/1 ML DISP.SYRIN SUBCUT ONE ×2 (10:00→11:30)
[2016-05-20] MEDS: MAGNESIUM OXIDE 400 MG TABLET PO SCH (11:18)
[2016-05-20] MEDS: ASPIRIN 81 MG TABLET, ENT COATED PO SCH (11:19)
[2016-05-20] MEDS: VENLAFAXINE HCL 75 MG CAP.SR.24H PO SCH (11:19)
[2016-05-20] MEDS: MIDODRINE HCL 5 MG TABLET PO SCH (11:19)
[2016-05-20] MEDS: DOCUSATE SODIUM 100 MG CAPSULE PO SCH (11:20)
[2016-05-20] MEDS: ISOSORBIDE MONONITRATE 30 MG TAB.ER.24H PO SCH (11:20)
[2016-05-20] MEDS: CETIRIZINE 10 MG TABLET PO SCH (11:20)
[2016-05-20] MEDS: OXYBUTYNIN CHLORIDE 5 MG TABLET PO SCH (11:20)
[2016-05-20] MEDS: FUROSEMIDE 40 MG TABLET PO SCH (11:20)
[2016-05-20] MEDS: LOSARTAN POTASSIUM 25 MG TABLET PO SCH (11:21)
[2016-05-20] MEDS: CARVEDILOL 3.125 MG TABLET PO SCH (11:21)
[2016-05-20] MEDS: FLUTICASONE NASAL SPRAY 50 MCG/SPRY 120 SPRAY/16 GM NASL SCH (11:22)
[2016-05-20] MEDS: NYSTATIN/DEXAMETH/DIPHEN SUSP 120 ML PO SCH (11:23)
[2016-05-20] MEDS: MINERAL OIL/PETROLATUM,WHITE CREAM 114 GM TP SCH (11:23)
[2016-05-20] MEDS: NYSTATIN 500000 UNIT/5 ML UDCUP PO SCH (11:25)
[2016-05-20 13:41] VITALS: BP 104/57
--- NOTE | 2016-05-21 14:53 | PROGRESS NOTE E ---
Progress Note NAME: AMANDA CALDERON : 1950 AGE: 66Y DATE: 05/20/2016 ROOM: 309 SUBJECTIVE: The patient denies any chest pain or discomfort. There is no shortness of breath. There is no arrhythmia. The patient is in atrial tracking and medical paced mode. There is no firing of his AICD. He has no leg edema. He has no PND. His orthopnea is much improved. There is no syncope. There is no bleeding on Coumadin. OBJECTIVE: GENERAL: On examination, the patient is moderately obese, in no acute distress. VITAL SIGNS: He is afebrile with a temperature of 97.4 degrees Fahrenheit. Pulse is 80 beats per minute, blood pressure 112/59, respirations are 16 per minute, and O2 saturations are 98% on room air. HEENT: Head is atraumatic, normocephalic. Eyes: Pupils are equal, round, regular, and reactive to light and accommodation. Extraocular movements are normal. There is no conjunctival pallor. There is no scleral icterus. ENT is negative. NECK: Supple. There is no JVD. Carotids are equal. There is no bruit. There is no goiter. Trachea is center. LUNGS: Clear to auscultation and percussion. HEART: S1, S2 is heard. There is no S3 gallop. There is no S4 gallop. There is a murmur of mild aortic stenosis present. There is prosthetic valve. There are no rubs. There is no murmur of aortic regurgitation. ABDOMEN: Soft, obese, nontender. There is no hepatosplenomegaly. Bowel sounds are well heard. There are no tender areas or masses. EXTREMITIES: Femorals are diminished. There are no femoral bruits. There is right oyexg-oer-ksrr amputation. The left leg has chronic venous dermatitis but no edema. There is no calf tenderness. There is no cyanosis or clubbing. CENTRAL NERVOUS SYSTEM: The patient is conscious, awake, alert and oriented x3 with no focal deficits. PSYCHIATRIC: The patient's judgment and insight are intact. His affect is normal. The patient's 24-hour intake is 1787 mL. Output is 2,806 mL out. LABORATORY DATA: White count 11,800, hemoglobin 9.8, hematocrit 31.4, platelet count 238,000. Sodium 137.8, potassium 4.4, chloride 98, CO2 29, BUN 36, creatinine 0.86. GFR is greater than 60. Glucose 121, calcium 9.3. ProTime is 22.1, INR 1.85 which is slightly subtherapeutic. IMPRESSION: 1. Hypotension. This has resolved with an increase of the patient's midodrine to 10 mg p.o. t.i.d. I have discussed with the patient and the patient's that he needs to take the last dose at least 4 hours prior to him going to sleep. 2. Acute on chronic systolic heart failure. At present, seems to be complicated. There are no signs of congestive heart failure when examined. 3. Coronary artery disease. History of percutaneous intervention of the LAD with subsequent total occlusion at the time of [facility] aortic valve replacement. He also had a . Records awaited. 4. Past history of non-ST elevation [place] in 1995. At present with no angina symptoms. 5. 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 [facility] aortic valve and it is functioning normally. The patient is on chronic anticoagulation therapy but the patient today is slightly subtherapeutic. The patient is very desirable to being discharged today. Hence would give him Lovenox 1 mg/kg subcutaneous x1 this morning. Also give him an extra dose of Coumadin 5 mg this morning. Also, continue his usual doses of Coumadin at night. The patient says that he gets his ProTime checked at home and calls . I have asked him to check his ProTime again in 2 days and to call me with the results. 6. 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 7. Noncardiac chest pain. No recurrence. 8. Obstructive sleep apnea on CPAP. 9. Morbid obesity. 10. Peripheral vascular disease status post right oxnfm-afe-kvps amputation. 11. Depression. 12. Dental abscess. This has resolved. 13. Diabetes mellitus type 2, insulin dependent with no complications. 14. Chronic kidney disease. Now with hydration, his GFR has come back to normal; hence, his renal insufficiency was secondary to old diuresis. 15. History of AICD. No recent firing. Note that the patient is able to tolerate Coreg 6.25 mg p.o. b.i.d., and also is able to tolerate his losartan. I have discussed with the patient and patient's again CHF teaching. The patient needs to weigh himself daily and if he has weight gain of 2 pounds in 1 day or 5 pounds in 3 days, to take an extra dose of Lasix also and to call me. Also, the patient and his have been instructed that if the patient has shortness of breath, to take an extra dose of Lasix, and if the patient has problems sleeping, then it means that the patient's CHF is not compensated. Also, he needs to watch the fluid intake, and also no added salt. All of the above discussed in detail. Also the need for periodic AICD checkups have been discussed with the patient and the patient's . Also, periodic Coumadin level testing with INR at home needs to be done. As mentioned earlier, the patient and his agree to follow up with me locally, and if the need arises, then we will send them to whichever driver merchandiser the patient desires. If advanced treatment is not available to [facility], there is . Note that this visit even though the patient is being discharged and is much more stable condition, the patient did receive a lot of teaching. TIME SPENT: A total of 50 minutes spent on this patient. I have given the patient and the patient's my cell phone telephone number and to call me if there are any problems major or even trivial. His medications have been reviewed. I also have discussed with the hospitalist taking care of the patient. DICTATING PHYSICIAN: ROZ MILES M.D. [id number] PHY#: [id number] ID: [id number] JOB#: [id number] ACCT: [id number] cc: >
== END 2016-05-20 16:47 | disposition home or self-care (01) | DRG 291 ==
LOC: ER 17:20 → UNDOADMIN 23:11 → EH 23:11 → 3N 05-10 13:37
PROVIDERS: ADMIT Family Medicine; ATTEND Family Medicine
DX: I13.0 Hypertensive heart and chronic kidney disease with heart failure and stage 1 through stage 4 chronic kidney disease, or unspecified chronic kidney disease (principal); I50.23 Acute on chronic systolic (congestive) heart failure; L97.929 Non-pressure chronic ulcer of unspecified part of left lower leg with unspecified severity; Z68.42 Body mass index [BMI] 45.0-49.9, adult; I42.8 Other cardiomyopathies; N18.3 Chronic kidney disease, stage 3 (moderate); J02.9 Acute pharyngitis, unspecified; D64.9 Anemia, unspecified; E66.01 Morbid (severe) obesity due to excess calories; K04.7 Periapical abscess without sinus; I25.10 Atherosclerotic heart disease of native coronary artery without angina pectoris; G47.33 Obstructive sleep apnea (adult) (pediatric); E11.22 Type 2 diabetes mellitus with diabetic chronic kidney disease; I73.9 Peripheral vascular disease, unspecified; F32.9 Major depressive disorder, single episode, unspecified; Z79.4 Long term (current) use of insulin; Z79.82 Long term (current) use of aspirin; Z79.899 Other long term (current) drug therapy; Z79.01 Long term (current) use of anticoagulants; Z95.4 Presence of other heart-valve replacement; Z89.511 Acquired absence of right leg below knee; Z95.810 Presence of automatic (implantable) cardiac defibrillator; Z95.5 Presence of coronary angioplasty implant and graft; Z85.828 Personal history of other malignant neoplasm of skin; I25.2 Old myocardial infarction; Z88.1 Allergy status to other antibiotic agents
CPT/HCPCS: 36415; 70486; 71010; 71020; 80048; 80053; 81001; 82550; 82553; 82962; 83735; 83880; 84443; 84484; 85025; 85027; 85610; 85730; 87070; 87880; 93005; 93010; 93306; 96374; 99285; G8978-GP; G8979-GP; J1644; J1815; J1940; J3490; J7040; J7050